=== PATIENT | female | born 1950 | race Caucasian/White ===

== ENCOUNTER 2019-06-10 13:19 | Outpatient (CLI) | payer MEDICARE, SELFPAY ==
--- NOTE | 2019-06-10 13:36 | XR_ITS ---
WS: [id number] SACRUM TECHNIQUE: 3 views of the sacrum and coccyx CLINICAL INFORMATION: SACROCOCCYGEAL DISORDERS COMPARISON: None. FINDINGS: Osteopenia. Pelvic phleboliths. Normal pubic rami. Vascular calcification. Disc space narrowing lower lumbar spine. Normal sacrum and coccyx. Normal sacrococcygeal junction. No acute fractures. XR/XR sacrum coccyx min 2V [id number] IMPRESSION: 1. Osteopenia with degenerative arthritis lower lumbar spine. 2. Normal visualized sacrum and coccyx. No visualized fractures.
== END 2019-06-10 13:20 | disposition home or self-care (01) ==
PROVIDERS: Family Provider Family Medicine; PCP Nurse Practitioner Family; Visit Provider Nurse Practitioner Family
DX: M53.3 Sacrococcygeal disorders, not elsewhere classified (principal); M85.88 Other specified disorders of bone density and structure, other site; M47.816 Spondylosis without myelopathy or radiculopathy, lumbar region
CPT/HCPCS: 72220

== ENCOUNTER 2020-04-07 14:27 | Outpatient (CLI) | payer MEDICARE, SELFPAY ==
--- NOTE | 2020-04-07 14:41 | XR_ITS ---
WS: [id number] DEXA (DUAL ENERGY X-RAY ABSORPTIOMETRY) Bone mineral density was performed using a Spotster machine. HISTORY: AGE RELATED OSTEOPOROSIS WITHOUT CURRENT PATHOLOGICAL FRACTURE COMPARISON: 03/12/2017 Lumbar spine BMD (L1-L4): 1.176 g/cm2 T score: 0.0 Z score: 2.1 Total hip BMD: Left: 0.672 g/cm2. T score: -2.7 Z score: -0.9 Right: 0.627 g/cm2. T score: -3.0 Z score: -1.3 10 year probability of a major osteoporotic fracture is 29%. Compared to the prior study from 03/12/2017. Lumbar spine bone mineral density has increased by 12.8%. Bilateral hips bone mineral density has increased by 1.9%. XR/XR DEXA axial skeleton* [id number] IMPRESSION: OSTEOPOROSIS based upon the WHO classification for females. Significant increas e in bone mineral density in the lumbar spine and hips since the prior study.
== END 2020-04-07 14:28 | disposition home or self-care (01) ==
LOC: RADWPI 14:38
PROVIDERS: PCP Nurse Practitioner Family; Visit Provider Nurse Practitioner Family
DX: M81.0 Age-related osteoporosis without current pathological fracture (principal)
CPT/HCPCS: 77080

== ENCOUNTER 2020-09-06 12:35 | Outpatient (CLI) | payer MEDICARE, SELFPAY ==
--- NOTE | 2020-09-06 12:49 | MM_ITS ---
WS: [id number] BILATERAL DIGITAL SCREENING MAMMOGRAPHY WITH CAD CLINICAL INFORMATION: SCREEN HISTORY: Screening mammogram. No current complaints. COMPARISON: TECHNIQUE: Bilateral CC and MLO views. FINDINGS: Scattered fibroglandular densities bilaterally. Lucent centered calcification right breast. A few pun ctate calcifications. No suspicious focal mass, asymmetry, calcifications, or architectural distortio n. No evidence of malignancy. MM/[place] [id number] IMPRESSION: BI-RADS: 2-Benign FOLLOW UP: 1 Year Follow-up Recommend return to annual screening mammography.
== END 2020-09-06 12:36 | disposition home or self-care (01) ==
LOC: RADSHAW 12:41
PROVIDERS: PCP Nurse Practitioner Family; Visit Provider Nurse Practitioner Family
DX: Z12.31 Encounter for screening mammogram for malignant neoplasm of breast (principal)
CPT/HCPCS: 77067

== ENCOUNTER 2021-11-16 13:48 | Emergency (ER) | payer MEDICARE, SELFPAY ==
[2021-11-16 13:50] VITALS: BP 162/87; PULSE 85; RESP 20; TEMP 36.4; O2SAT 97; BMI 21.5
--- NOTE | 2021-11-16 15:25 | ED_ITS ---
Documented by User: Annette Gant PA-C 11/16/21 15:30 HPI - Back Pain/Injury General: Chief Complaint: Back Pain/Injury Stated Complaint: Back pain Time Seen by Provider: 11/16/21 15:13 Source: patient Mode of arrival: wheelchair Limitations: no limitations History of Present Illness: 71-year-old female with a history of CVA presents to the ER today for worsening back pain. Patient comes with her brother who helps take care of her. They report patient has been out of her pain medication since September. They called to request a refill today as her pain is getting worse and worse and they were told she needed to be seen. Patient does not have another appointment until December 05 and she does not feel she can make it until then with the pain. She denies any new deficits. Denies any numbness or tingling. Denies any loss of bowel or bladder control. Patient reports her pain is worse but that is because she is out of medication. She is taking immediate release Tylenol at home with no improvement. Review of Systems General: Reports: 10 or more systems reviewed and unremarkable except in HPI and below PFSH ED PFSH: Medical History Anxiety and depression Chronic nausea COPD (chronic obstructive pulmonary disease) CVA, old, aphasia CVA 2013 Encounter for well woman exam Hyperlipidemia Hypertension Osteoporosis Physical Exam Const: COMMON NORMALS: no limitations and alert; apparent distress (pt appears uncomfortable) and negative for average body habitus (thin) Neck/C-Spine: COMMON NORMALS: full ROM Resp: COMMON NORMALS: normal respiratory effort and No retractions Cardio: COMMON NORMALS: regular rate and regular rhythm RATE: regular rate RHYTHM: regular rhythm Back/Pelvis: OTHER: Patient has diffuse tenderness of low back. There is no neurological deficits noted. This appears chronic. Extremity: COMMON NORMALS: normal to inspection Neuro: SENSORIUM/ORIENTATION: Yes alert Psych: OTHER: at baseline, hx of aphasia Skin: COMMON NORMALS: no rashes or lesions noted and no wounds GENERAL SKIN EXAM: no rashes or lesions noted Course ED course: 71-year-old female with a history of CVA with aphasia and chronic low back pain presents to the ER today for worsening back pain. Patient reports she has been out of her hydrocodone since September. At that time her pain was decently controlled on the hydrocodone. Patient reports she does not have an appointment with her PCP until December 05. She reports the pain is worsening and she cannot wait until then. She reports she has fallen a couple of times but denies any new deficits or that the pain is any worse than it was in September. Patient reports at that time it was just better controlled with the pain medications. Given there are no new neurological deficits, imaging is not warranted at this time. Vital Signs: Vital signs: Vital Signs Temperature 97.6 F 11/16/21 13:50 Pulse Rate 85 11/16/21 13:50 Respiratory Rate 20 H 11/16/21 13:50 Blood Pressure 162/87 11/16/21 13:50 Pulse Oximetry 97 11/16/21 13:50 Oxygen Delivery Me thod 11/16/21 13:50 MDM - Back Pain/Injury Medical Decision Making Patient has a history of chronic low back pain and likely this is just an exacerbation of that given she has been out of pain medications for almost 2 months. Imaging is not warranted at this time as she has no new deficits. Likely patient may need an MRI but with that can be done outpatient with her PCP. We will refill patient's pain meds for a few days however I did discuss with patient and brother that she must follow-up with her PCP this week as we cannot refill pain medications in the ER. They verbalized understanding and are in agreement with this plan. Critical Care Time Critical Care Time: Critical Care Time: No Discharge Plan Discharge Patient Disposition: Home Clinical Impression: Acute exacerbation of chronic low back pain Condition: Stable Prescriptions: New hydrocodone-acetaminophen 5-325 mg tablet 1 tab PO Q8H PRN (Reason: pain) 5 Days Qty: 15 0RF No Action One-A-Day Women's Complete 18 mg-400 mcg- 25 mcg tablet PO coenzyme Q10 100 mg capsule 100 mg PO DAILY albuterol sulfate 90 mcg/actuation aerosol powdr breath activated 2 inh inhalation Q6H PRN amlodipine 5 mg tablet 5 mg PO DAILY Qty: 90 1RF atorvastatin 40 mg tablet 40 mg PO .qhs 90 Days Qty: 90 1RF bisoprolol fumarate 5 mg tablet 5 mg PO DAILY Qty: 90 1RF indapamide 2.5 mg tablet 2.5 mg PO QAM Qty: 90 0RF mirtazapine 15 mg tablet 15 mg PO DAILY Qty: 90 1RF ondansetron HCl 4 mg tablet 4 mg PO Q8H PRN (Reason: nausea and vomiting) Qty: 30 1RF valsartan 320 mg tablet 320 mg PO DAILY Qty: 90 1RF hydrocodone-acetaminophen 5-325 mg tablet 1 tab PO BID PRN (Reason: chronic pain) 30 Days Qty: 60 0RF Rx Instructions: On or after her last 30 day interval. Discharge Orders: Discharge ED (Routine); Ordered 11/16/21 Ordered By: Annette Gant Referrals: Steve Velez MD [Primary Care Provider] - Discharge Diet: Usual diet Discharge Activity: Increase activity as tolerated Patient Instructions: Opioid Safety, Pain Management Activity Restrictions/Additional Instructions: Take hydrocodone as prescribed. Contact PCP today to schedule appointment next week. We cannot prescribe narcotics from the ER for long-term use. We will do a few days to get her through until she can see her doctor next week return to the ER with new or worsening symptoms. Coding Level of Care Code ED [employer] Intern for [employer] Exam Detailed Documented by User: Rodrigo Shepard DO 11/17/21 10:14 HPI - Back Pain/Injury General: Chief Complaint: Back Pain/Injury Stated Complaint: Back pain Time Seen by Provider: 11/16/21 15:13 PFSH ED PFSH: Medical History Anxiety and depression Chronic nausea COPD (chronic obstructive pulmonary disease) CVA, old, aphasia CVA 2013 Encounter for well woman exam Hyperlipidemia Hypertension Osteoporosis Course Vital Signs: Vital signs: Vital Signs Temperature 97.6 F 11/16/21 13:50 Pulse Rate 85 11/16/21 13:50 Respiratory Rate 20 H 11/16/21 13:50 Blood Pressure 162/87 11/16/21 13:50 Pulse Oximetry 97 11/16/21 13:50 Oxygen Delivery Me thod 11/16/21 13:50 MDM - Back Pain/Injury Medical Decision Making Patient has a history of chronic low back pain and likely this is just an ex acerbation of that given she has been out of pain medications for almost 2 months. Imaging is not warranted at this time as she has no new deficits. Likely patient may need an MRI but with that can be done outpatient with her PCP. We will refill patient's pain meds for a few days however I did discuss with patient and brother that she must follow-up with her PCP this week as we cannot refill pain medications in the ER. They verbalized understanding and are in agreement with this plan. Chart reviewed and patient discussed with midlevel. Agree with assessment and plan. Discharge Plan Discharge Patient Disposition: Home Clinical Impression: Acute exacerbation of chronic low back pain Condition: Stable Prescriptions: New hydrocodone-acetaminophen 5-325 mg tablet 1 tab PO Q8H PRN (Reason: pain) 5 Days Qty: 15 0RF No Action One-A-Day Women's Complete 18 mg-400 mcg- 25 mcg tablet PO coenzyme Q10 100 mg capsule 100 mg PO DAILY albuterol sulfate 90 mcg/actuation aerosol powdr breath activated 2 inh inhalation Q6H PRN amlodipine 5 mg tablet 5 mg PO DAILY Qty: 90 1RF atorvastatin 40 mg tablet 40 mg PO .qhs 90 Days Qty: 90 1RF bisoprolol fumarate 5 mg tablet 5 mg PO DAILY Qty: 90 1RF indapamide 2.5 mg tablet 2.5 mg PO QAM Qty: 90 0RF mirtazapine 15 mg tablet 15 mg PO DAILY Qty: 90 1RF ondansetron HCl 4 mg tablet 4 mg PO Q8H PRN (Reason: nausea and vomiting) Qty: 30 1RF valsartan 320 mg tablet 320 mg PO DAILY Qty: 90 1RF hydrocodone-acetaminophen 5-325 mg tablet 1 tab PO BID PRN (Reason: chronic pain) 30 Days Qty: 60 0RF Rx Instructions: On or after her last 30 day interval. Discharge Orders: Discharge ED (Routine); Ordered 11/16/21 Ordered By: Annette Gant Referrals: Steve Velez MD [Primary Care Provider] - Discharge Diet: Usual diet Discharge Activity: Increase activity as tolerated Patient Instructions: Opioid Safety, Pain Management Activity Restrictions/Additional Instructions: Take hydrocodone as prescribed. Contact PCP today to schedule appointment next week. We cannot prescribe narcotics from the ER for long-term use. We will do a few days to get her through until she can see her doctor next week return to the ER with new or worsening symptoms. Coding Level of Care Code ED [employer] Intern for [employer] Exam Detailed
== END 2021-11-16 15:22 | disposition home or self-care (01) ==
PROVIDERS: Emergency Provider Physician Assistant; PCP Family Medicine Adult Medicine
DX: G89.29 Other chronic pain (principal); M54.50 Low back pain, unspecified; J44.9 Chronic obstructive pulmonary disease, unspecified; Z86.73 Personal history of transient ischemic attack (TIA), and cerebral infarction without residual deficits; E78.5 Hyperlipidemia, unspecified; I10 Essential (primary) hypertension
CPT/HCPCS: 99283

== ENCOUNTER → 2022-05-31 11:00 | Outpatient (BNVA) | payer MEDICARE, SELFPAY | PROVIDERS: PCP Family Medicine Adult Medicine; Visit Provider Podiatrist Foot & Ankle Surgery | DX: Q82.8 Other specified congenital malformations of skin (principal); L60.3 Nail dystrophy; M20.41 Other hammer toe(s) (acquired), right foot; M20.42 Other hammer toe(s) (acquired), left foot; B35.1 Tinea unguium | CPT/HCPCS: 11055; 11721; 99203 ==

== ENCOUNTER 2022-08-17 16:01 | Inpatient (IN) | payer MEDICARE, SELFPAY ==
[2022-08-17] VITALS (35 sets, daily range): BP systolic 130–189; BP diastolic 65–116; PULSE 56–93; RESP 7–22; TEMP 35.8; O2SAT 91–99; BMI 22.6
--- NOTE | 2022-08-17 16:05 | W.ED.BACK ---
Documented by User: Rodrigo Shepard DO 08/19/22 13:32 HPI - Back Pain/Injury General: Chief Complaint: Back Pain/Injury Stated Complaint: BACK PAIN Time Seen by Provider: 08/17/22 16:04 Source: patient Mode of arrival: EMS History of Present Illness: 71-year-old female complaining mainly of an exacerbation of chronic low back pain. She also is having trouble breathing apparently. She has a history of expressive aphasia, which makes history difficult. Family feels pain has been uncontrollable. In the exam room is difficult to get a history from her she is continually bending over at the waist while sitting with her legs crossed initially complains of back pain and states she cannot breathe and cannot clear her throat. Her vital signs are stable. MD elicited complaint: back pain Pertinent past history: prior back pain Review of Systems General: Reports: ROS unobtainable due to medical condition and ROS unobtainable due to mental status PFSH ED PFSH: Medical History Anxiety and depression Chronic nausea COPD (chronic obstructive pulmonary disease) CVA, old, aphasia CVA 2014 Encounter for well woman exam [place] Hyperlipidemia Hypertension Osteoarthritis involving multiple joints on both sides of body Osteoporosis Plantar wart Smoker unmotivated to quit Social History Smoking and tobacco status: current every day smoker cigarettes Smoking risk assessment/counseling performed?: No Alcohol intake: current Alcohol intake frequency: holidays/special occasions only Alcohol type: wine Desire information about alcohol rehabilitation?: No Counseling given: No Substance/Drug Use: current Substance/Drug use frequency: Special occassions/opportunity only Desire information about substance/drug rehabilitation?: No Counseling given: No Adopted: No Current occupational status: disabled Physical Exam HENMT: COMMON NORMALS: normocephalic, atraumatic and hearing grossly normal bilaterally HEAD & SCALP: normocephalic and atraumatic Resp: COMMON NORMALS: normal respiratory effort, No retractions, No use of accessory muscles and clear to auscultation bilaterally AUSCULTATION: clear to auscultation bilaterally Cardio: COMMON NORMALS: regular rate, regular rhythm and No murmurs present (Cardio) RATE: regular rate RHYTHM: regular rhythm GI: COMMON NORMALS: Soft to palpation and No hepatosplenomegaly present AUSCULTATION: Yes normoactive bowel sounds PALPATION: Yes Soft to palpation, No Tenderness to palpation present (GI), No Guarding due to palpation present (GI) and Yes No hepatosplenomegaly present Extremity: COMMON NORMALS: normal to inspection, capillary refill normal, no clubbing, cyanosis or edema, no calf tenderness and no pedal edema Skin: COMMON NORMALS: no rashes or lesions noted GENERAL SKIN EXAM: no rashes or lesions noted Course Vital Signs: Vital signs: Vital Signs Temperature 97.7 F 08/19/22 07:30 Pulse Rate 84 08/19/22 13:00 Respiratory Rate 16 08/19/22 13:00 Blood Pressure 189/126 08/19/22 13:00 Pulse Oximetry 98 08/19/22 13:00 Oxygen Delivery Me thod Nasal Cannula 08/19/22 13:00 Oxygen Flow Rate 1.5 08/19/22 13:00 MDM - Back Pain/Injury Medical Decision Making Care signed out to Dr. Porter at change of shift. See final notes for diagnosis and disposition. 71-year-old female checked out to me by the previous physician at shift change. This lady has chronic aphasia, and so she is a difficult historian. She presents with severe back pain, which is an exacerbation of chronic back pain, and a feeling of not being able to breathe. Current vitals blood pressure 152/80, pulse is 60, respirations are 16. Saturations 95% on 2 L nasal cannula. Head CT was performed, because of apparent mental status change given her inability to talk. CT shows no acute abnormality. CT of the neck shows no mass or adenopathy but does showed mild diffuse groundglass opacities in the lungs. Chest x-ray however is negative for considerable infiltrate. Abdomen pelvis CT is completed as well. It shows pneumonitis again. It also shows severe stenosis at the L3-4, L4-5, and L5-S1 levels. Likely the cause of her pain. She received 2 mg of Ativan IV, which have relaxed her significantly. The patient has a history of COPD as well. Blood gases completed showing a pH of 737, PCO2 of 50, and PO2 of 99 on 24% oxygen. She is treated with Rocephin and Zithromax for pneumonitis. This is after blood cultures and lactate were drawn. She is given IV dexamethasone, both for the stenosis, and for COPD. She will go to the ICU, given her tedious respiratory status. We will continue IV steroids, breathing treatments, treatment for pneumonitis. Hospitalist asked that we consult spine surgery due to stenosis and pain. I spoke with orthospine, and he will see the patient in the morning. She does not appear to have any red flag symptoms or weakness at this point. Labs 08/18/22 04:17 08/18/22 04:17 Radiology Impressions Abdomen/Pelvis CT 08/17/22 16:21 IMPRESSION: 1. No acute abnormality. 2. At L3-L4, L4-L5 and L5-S1, there is severe stenosis of the spinal canal and foramina due to congenitally small canal, disc bulges and marked facet and ligamentum flavum hypertrophy. No acute fracture. 3. There is ground-glass opacity in the lung bases compatible with atelectasis, mild edema or pneumonitis. Chest X-Ray 08/17/22 16:22 IMPRESSION: No acute findings. Neck CT 08/17/22 16:30 IMPRESSION: 1. No mass or adenopathy. 2. Mild diffuse ground-glass opacity in the lungs concerning for edema or pneumonitis. Head CT 08/17/22 16:35 IMPRESSION: 1. No acute intracranial abnormality. 2. Old lacunar infarcts noted in the right cerebellar hemisphere, right thalamus, viviana/midbrain, and left basal ganglia. 3. Moderate diffuse cerebral atrophy and sequela of chronic small vessel ischemic disease. Laboratory Results WBC 7.6 10^3/uL (4.0-10.0) 08/17/22 17: RBC 4.25 10^6/uL (4.1-5.3) 08/17/22 17: Hgb 12.7 g/dL (11.5-15.3) 08/17/22 17: Hct 40.1 % (37.0-47.0) 08/17/22 17: MCV 94.4 fl (81-99) 08/17/22 17: MCH 29.9 pg (28.0-34.0) 08/17/22 17: MCHC 31.7 g/dL (30.0-36.0) 08/17/22 17: RDW 13.2 % (12.1-15.1) 08/17/22 17: Plt Count 286 10^3/cmm (130-400) 08/17/22 17:01 MPV 9.9 fL (7.4-10.4) 08/17/22 17:01 Neut % (Auto) 46.0 % 08/17/22 17:01 Lymph % (Auto) 39.1 % 08/17/22 17:01 [place] % (Auto) 9.0 % 08/17/22 17:01 Eos % (Auto) 4.3 % 08/17/22 17:01 Baso % (Auto) 1.3 % 08/17/22 17:01 Neut # (Auto) 3.49 10^3/uL (1.8-7.7) 08/17/22 17:01 Lymph # (Auto) 3.0 10^3/uL (0.8-4.8) 08/17/22 17:01 [place] # (Auto) 0.7 10^3/uL (0.2-0.9) 08/17/22 17:01 Eos # (Auto) 0.3 10^3/uL (0.0-0.8) 08/17/22 17:01 Baso # (Auto) 0.1 10^3/uL (0.0-0.1) 08/17/22 17:01 Nucleated RBC % (auto) 0 % 08/17/22 17:01 Nucleated RBCs # 0.0 /100WBC 08/17/22 17:01 D-Dimer 1.11 ug/mIFEU (0-0.59) H 08/17/22 17:01 Specimen Type Arterial 08/17/22 19:04 Sample Site Brachial, left 08/17/22 19:04 ABG pH 7.37 (7.35-7.45) 08/17/22 19:04 ABG pCO2 50.0 mmHg (35-45) H 08/17/22 19:04 ABG pO2 99.0 mmHg (80.0-100.0) 08/17/22 19:04 ABG HCO3 28.6 mmol/L (22-26) H 08/17/22 19:04 ABG Base Excess 2.5 mmol/L (-2.0-2.0) H 08/17/22 19:04 Robbie Test N/a 08/17/22 19:04 Hematocrit 38.2 % (37-47) 08/17/22 19:04 O2 Delivery Device Nc 08/17/22 19:04 O2 Liters/Min 1.0 % 08/17/22 19:04 FiO2 24.0 % 08/17/22 19:04 [place] Measurer ID Ed 08/17/22 19:04 Sodium 141 mmol/L (136-145) 08/17/22 17:01 Potassium 3.6 mmol/L (3.5-5.1) 08/17/22 17:01 Chloride 104 mmol/L (98-107) 08/17/22 17:01 Carbon Dioxide 27 mmol/L (22-29) 08/17/22 17:01 Anion Gap 13.6 (5-19) 08/17/22 17:01 BUN 20 mg/dL (8-23) 08/17/22 17:01 Creatinine 1.2 mg/dL (0.5-0.9) H 08/17/22 17:01 GFR Calculation Not Reportable 08/17/22 17:01 Glucose 88 mg/dL (65-115) 08/17/22 17:01 Calculated Osmolality 294 mOsm/kg (285-295) 08/17/22 17:01 Lactic Acid 0.7 mmol/L (0.5-2.2) 08/17/22 19:08 Calcium 8.5 mg/dL (8.5-10.5) 08/17/22 17:01 Total Bilirubin 0.2 mg/dL (0.15-1.2) 08/17/22 17:01 AST 18 U/L (0-32) 08/17/22 17:01 ALT 13 U/L (0-33) 08/17/22 17:01 Alkaline Phosphatase 112 U/L (35-105) H 08/17/22 17:01 Creatine Kinase 99 U/L (26-192) 08/17/22 17:01 Troponin T Baseline 21 ng/L (0-10) H 08/17/22 17:01 Troponin T 120 Minute 21.76 ng/L (0-10) H 08/17/22 19:08 Delta Troponin T 0.76 ABS# (0-10) 08/17/22 19:08 NT-Pro-B Natriuret Pep 207 pg/mL (0-125) H 08/17/22 19:08 Total Protein 6.3 g/dL (6.6-8.7) L 08/17/22 17:01 Albumin 3.9 g/dL (3.5-5.2) 08/17/22 17:01 Globulin 2.4 g/dL (1.3-4.6) 08/17/22 17:01 Lipase 39 U/L (13-60) 08/17/22 17:01 Procalcitonin 0.04 ng/mL (0-0.5) 08/17/22 19:08 TSH 24.89 uIU/mL (0.27-4.20) H 08/17/22 19:08 Urine Color Straw (Yellow) 08/17/22 16:52 Urine Appearance Clear (CLEAR) 08/17/22 16:52 Urine pH 5 (5-7) 08/17/22 16:52 Ur Specific [place] 1.025 (1.005-1.030) 08/17/22 16:52 Urine Protein Neg (Negative) 08/17/22 16:52 Urine Glucose (UA) Norm (Normal) 08/17/22 16:52 Urine Ketones Negative (Negative) 08/17/22 16:52 Urine Blood Trace (Negative) H 08/17/22 16:52 Urine Nitrate Negative (Negative) 08/17/22 16:52 Urine Bilirubin Neg (Negative) 08/17/22 16:52 Urine Urobilinogen Norm mg/dL (Negative) 08/17/22 16:52 Ur Leukocyte Esterase Negative (Negative) 08/17/22 16:52 Urine RBC None /hpf (0-2) 08/17/22 16:52 Urine WBC Rare /hpf (0-5) 08/17/22 16:52 Ur Squamous Epith Cells 0-4 /hpf (0-5) H 08/17/22 16:52 Amorphous Sediment Not Reportable 08/17/22 16:52 Urine Bacteria Trace /hpf (NONE) 08/17/22 16:52 Nasal Influ A H1 2008 PCR Not detected (NOT DETECT) 08/17/22 19:09 Adenovirus (PCR) Not detected (NOT DETECT) 08/17/22 19:09 C. pneumoniae DNA (PCR) Not detected (NOT DETECT) 08/17/22 19:09 Coronavirus 229E (PCR) Not detected (NOT DETECT) 08/17/22 19:09 Human Metapneumovir PCR Not detected (NOT DETECT) 08/17/22 19:09 Influenza A (H1) PCR Not detected (NOT DETECT) 08/17/22 19:09 Influenza A (H3) PCR Not detected (NOT DETECT) 08/17/22 19:09 Influenza Type A (PCR) Not detected (NOT DETECT) 08/17/22 19:09 Influenza Type B (PCR) Not detected (NOT DETECT) 08/17/22 19:09 M. pneumoniae (PCR) Not detected (NOT DETECT) 08/17/22 19:09 Parainfluenza 1 (PCR) Not detected (NOT DETECT) 08/17/22 19:09 Parainfluenza 2 (PCR) Not detected (NOT DETECT) 08/17/22 19:09 Parainfluenza 3 (PCR) Not detected (NOT DETECT) 08/17/22 19:09 Parainfluenza 4 (PCR) Not detected (NOT DETECT) 08/17/22 19:09 RSV Type A (PCR) Not detected (NOT DETECT) 08/17/22 19:09 RSV Type B (PCR) Not detected (NOT DETECT) 08/17/22 19:09 Entero/Rhino (PCR) Not detected (NOT DETECT) 08/17/22 19:09 SARS-CoV-2 (PCR) Not detected (NOT DETECT) 08/17/22 19:09 Discharge Plan Discharge Patient Disposition: Admitted As Inpatient Admit Provider: Nory Pino Clinical Impression: Lumbar stenosis, Pneumonitis, Respiratory failure with hypoxia Condition: Stable Coding Level of Care Code ED Public Address System Mechanic for Chg Fwd Documented by User: Alistair Porter DO 08/17/22 21:17 HPI - Back Pain/Injury General: Chief Complaint: Back Pain/Injury Stated Complaint: BACK PAIN Time Seen by Provider: 08/17/22 16:04 History of Present Illness: 71-year-old female complaining mainly of an exacerbation of chronic low back pain. She also is having trouble breathing apparently. She has a history of expressive aphasia, which makes history difficult PFSH ED PFSH: Medical History Anxiety and depression Chronic nausea COPD (chronic obstructive pulmonary disease) CVA, old, aphasia CVA 2013 Encounter for well woman exam [place] Hyperlipidemia Hypertension Osteoarthritis involving multiple joints on both sides of body Osteoporosis Plantar wart Smoker unmotivated to quit Social History Smoking and tobacco status: current every day smoker cigarettes Smoking risk assessment/counseling performed?: No Alcohol intake: current Alcohol intake frequency: holidays/special occasions only Alcohol type: wine Desire information about alcohol rehabilitation?: No Counseling given: No Substance/Drug Use: current Substance/Drug use frequency: Special occassions/opportunity only Desire information about substance/drug rehabilitation?: No Counseling given: No Adopted: No Current occupational status: disabled Course Vital Signs: Vital signs: Vital Signs Temperature 97.7 F 08/19/22 07:30 Pulse Rate 84 08/19/22 13:00 Respiratory Rate 16 08/19/22 13:00 Blood Pressure 189/126 08/19/22 13:00 Pulse Oximetry 98 08/19/22 13:00 Oxygen Delivery Me thod Nasal Cannula 08/19/22 13:00 Oxygen Flow Rate 1.5 08/19/22 13:00 MDM - Back Pain/Injury Medical Decision Making 71-year-old female checked out to me by the previous physician at shift change. This lady has chronic aphasia, and so she is a difficult historian. She presents with severe back pain, which is an exacerbation of chronic back pain, and a feeling of not being able to breathe. Current vitals blood pressure 152/80, pulse is 60, respirations are 16. Saturations 95% on 2 L nasal cannula. Head CT was performed, because of apparent mental status change given her inability to talk. CT shows no acute abnormality. CT of the neck shows no mass or adenopathy but does showed mild diffuse groundglass opacities in the lungs. Chest x-ray however is negative for considerable infiltrate. Abdomen pelvis CT is completed as well. It shows pneumonitis again. It also shows severe stenosis at the L3-4, L4-5, and L5-S1 levels. Likely the cause of her pain. She received 2 mg of Ativan IV, which have relaxed her significantly. The patient has a history of COPD as well. Blood gases completed showing a pH of 737, PCO2 of 50, and PO2 of 99 on 24% oxygen. She is treated with Rocephin and Zithromax for pneumonitis. This is after blood cultures and lactate were drawn. She is given IV dexamethasone, both for the stenosis, and for COPD. She will go to the ICU, given her tedious respiratory status. We will continue IV steroids, breathing treatments, treatment for pneumonitis. Hospitalist asked that we consult spine surgery due to stenosis and pain. I spoke with orthospine, and he will see the patient in the morning. She does not appear to have any red flag symptoms or weakness at this point. Labs 08/18/22 04:17 08/18/22 04:17 Radiology Impressions Abdomen/Pelvis CT 08/17/22 16:21 IMPRESSION: 1. No acute abnormality. 2. At L3-L4, L4-L5 and L5-S1, there is severe stenosis of the spinal canal and foramina due to congenitally small canal, disc bulges and marked facet and ligamentum flavum hypertrophy. No acute fracture. 3. There is ground-glass opacity in the lung bases compatible with atelectasis, mild edema or pneumonitis. Chest X-Ray 08/17/22 16:22 IMPRESSION: No acute findings. Neck CT 08/17/22 16:30 IMPRESSION: 1. No mass or adenopathy. 2. Mild diffuse ground-glass opacity in the lungs concerning for edema or pneumonitis. Head CT 08/17/22 16:35 IMPRESSION: 1. No acute intracranial abnormality. 2. Old lacunar infarcts noted in the right cerebellar hemisphere, right thalamus, viviana/midbrain, and left basal ganglia. 3. Moderate diffuse cerebral atrophy and sequela of chronic small vessel ischemic disease. Laboratory Results WBC 7.6 10^3/uL (4.0-10.0) 08/17/22 17:01 RBC 4.25 10^6/uL (4.1-5.3) 08/17/22 17:01 Hgb 12.7 g/dL (11.5-15.3) 08/17/22 17:01 Hct 40.1 % (37.0-47.0) 08/17/22 17: MCV 94.4 fl (81-99) 08/17/22 17:01 MCH 29.9 pg (28.0-34.0) 08/17/22 17: MCHC 31.7 g/dL (30.0-36.0) 08/17/22 17:01 RDW 13.2 % (12.1-15.1) 08/17/22 17:01 Plt Count 286 10^3/cmm (130-400) 08/17/22 17:01 MPV 9.9 fL (7.4-10.4) 08/17/22 17:01 Neut % (Auto) 46.0 % 08/17/22 17:01 Lymph % (Auto) 39.1 % 08/17/22 17:01 [place] % (Auto) 9.0 % 08/17/22 17:01 Eos % (Auto) 4.3 % 08/17/22 17:01 Baso % (Auto) 1.3 % 08/17/22 17:01 Neut # (Auto) 3.49 10^3/uL (1.8-7.7) 08/17/22 17:01 Lymph # (Auto) 3.0 10^3/uL (0.8-4.8) 08/17/22 17:01 [place] # (Auto) 0.7 10^3/uL (0.2-0.9) 08/17/22 17:01 Eos # (Auto) 0.3 10^3/uL (0.0-0.8) 08/17/22 17:01 Baso # (Auto) 0.1 10^3/uL (0.0-0.1) 08/17/22 17:01 Nucleated RBC % (auto) 0 % 08/17/22 17:01 Nucleated RBCs # 0.0 /100WBC 08/17/22 17:01 D-Dimer 1.11 ug/mIFEU (0-0.59) H 08/17/22 17:01 Specimen Type Arterial 08/17/22 19:04 Sample Site Brachial, left 08/17/22 19:04 ABG pH 7.37 (7.35-7.45) 08/17/22 19:04 ABG pCO2 50.0 mmHg (35-45) H 08/17/22 19:04 ABG pO2 99.0 mmHg (80.0-100.0) 08/17/22 19:04 ABG HCO3 28.6 mmol/L (22-26) H 08/17/22 19:04 ABG Base Excess 2.5 mmol/L (-2.0-2.0) H 08/17/22 19:04 Robbie Test N/a 08/17/22 19:04 Hematocrit 38.2 % (37-47) 08/17/22 19:04 O2 Delivery Device Nc 08/17/22 19:04 O2 Liters/Min 1.0 % 08/17/22 19:04 FiO2 24.0 % 08/17/22 19:04 [place] Measurer ID Ed 08/17/22 19:04 Sodium 141 mmol/L (136-145) 08/17/22 17:01 Potassium 3.6 mmol/L (3.5-5.1) 08/17/22 17:01 Chloride 104 mmol/L (98-107) 08/17/22 17:01 Carbon Dioxide 27 mmol/L (22-29) 08/17/22 17:01 Anion Gap 13.6 (5-19) 08/17/22 17:01 BUN 20 mg/dL (8-23) 08/17/22 17:01 Creatinine 1.2 mg/dL (0.5-0.9) H 08/17/22 17:01 GFR Calculation Not Reportable 08/17/22 17:01 Glucose 88 mg/dL (65-115) 08/17/22 17:01 Calculated Osmolality 294 mOsm/kg (285-295) 08/17/22 17:01 Lactic Acid 0.7 mmol/L (0.5-2.2) 08/17/22 19:08 Calcium 8.5 mg/dL (8.5-10.5) 08/17/22 17:01 Total Bilirubin 0.2 mg/dL (0.15-1.2) 08/17/22 17:01 AST 18 U/L (0-32) 08/17/22 17:01 ALT 13 U/L (0-33) 08/17/22 17:01 Alkaline Phosphatase 112 U/L (35-105) H 08/17/22 17:01 Creatine Kinase 99 U/L (26-192) 08/17/22 17:01 Troponin T Baseline 21 ng/L (0-10) H 08/17/22 17:01 Troponin T 120 Minute 21.76 ng/L (0-10) H 08/17/22 19:08 Delta Troponin T 0.76 ABS# (0-10) 08/17/22 19:08 NT-Pro-B Natriuret Pep 207 pg/mL (0-125) H 08/17/22 19:08 Total Protein 6.3 g/dL (6.6-8.7) L 08/17/22 17:01 Albumin 3.9 g/dL (3.5-5.2) 08/17/22 17:01 Globulin 2.4 g/dL (1.3-4.6) 08/17/22 17:01 Lipase 39 U/L (13-60) 08/17/22 17:01 Procalcitonin 0.04 ng/mL (0-0.5) 08/17/22 19:08 TSH 24.89 uIU/mL (0.27-4.20) H 08/17/22 19:08 Urine Color Straw (Yellow) 08/17/22 16:52 Urine Appearance Clear (CLEAR) 08/17/22 16:52 Urine pH 5 (5-7) 08/17/22 16:52 Ur Specific [place] 1.025 (1.005-1.030) 08/17/22 16:52 Urine Protein Neg (Negative) 08/17/22 16:52 Urine Glucose (UA) Norm (Normal) 08/17/22 16:52 Urine Ketones Negative (Negative) 08/17/22 16:52 Urine Blood Trace (Negative) H 08/17/22 16:52 Urine Nitrate Negative (Negative) 08/17/22 16:52 Urine Bilirubin Neg (Negative) 08/17/22 16:52 Urine Urobilinogen Norm mg/dL (Negative) 08/17/22 16:52 Ur Leukocyte Esterase Negative (Negative) 08/17/22 16:52 Urine RBC None /hpf (0-2) 08/17/22 16:52 Urine WBC Rare /hpf (0-5) 08/17/22 16:52 Ur Squamous Epith Cells 0-4 /hpf (0-5) H 08/17/22 16:52 Amorphous Sediment Not Reportable 08/17/22 16:52 Urine Bacteria Trace /hpf (NONE) 08/17/22 16:52 Nasal Influ A H1 2009 PCR Not detected (NOT DETECT) 08/17/22 19:09 Adenovirus (PCR) Not detected (NOT DETECT) 08/17/22 19:09 C. pneumoniae DNA (PCR) Not detected (NOT DETECT) 08/17/22 19:09 Coronavirus 229E (PCR) Not detected (NOT DETECT) 08/17/22 19:09 Human Metapneumovir PCR Not detected (NOT DETECT) 08/17/22 19:09 Influenza A (H1) PCR Not detected (NOT DETECT) 08/17/22 19:09 Influenza A (H3) PCR Not detected (NOT DETECT) 08/17/22 19:09 Influenza Type A (PCR) Not detected (NOT DETECT) 08/17/22 19:09 Influenza Type B (PCR) Not detected (NOT DETECT) 08/17/22 19:09 M. pneumoniae (PCR) Not detected (NOT DETECT) 08/17/22 19:09 Parainfluenza 1 (PCR) Not detected (NOT DETECT) 08/17/22 19:09 Parainfluenza 2 (PCR) Not detected (NOT DETECT) 08/17/22 19:09 Parainfluenza 3 (PCR) Not detected (NOT DETECT) 08/17/22 19:09 Parainfluenza 4 (PCR) Not detected (NOT DETECT) 08/17/22 19:09 RSV Type A (PCR) Not detected (NOT DETECT) 08/17/22 19:09 RSV Type B (PCR) Not detected (NOT DETECT) 08/17/22 19:09 Entero/Rhino (PCR) Not detected (NOT DETECT) 08/17/22 19:09 SARS-CoV-2 (PCR) Not detected (NOT DETECT) 08/17/22 19:09 Discharge Plan Discharge Patient Disposition: Admitted As Inpatient Admit Provider: Nory Pino Clinical Impression: Lumbar stenosis, Pneumonitis, Respiratory failure with hypoxia Condition: Stable Coding Level of Care Code ED Public Address System Mechanic for Troy Sahni
--- NOTE | 2022-08-17 16:21 | CTR_ITS ---
PROCEDURE INFORMATION: Exam: CT Abdomen And Pelvis Without Contrast Exam date and time: 08/17/2022 5:58 PM Age: 71 years old Clinical indication: Abdominal pain; Generalized; Patient HX: Diffuse abd and back pain. Recent multiple falls per family. TECHNIQUE: Imaging protocol: Computed tomography of the abdomen and pelvis without contrast. Radiation optimization: All CT scans at this facility use at least one of these dose optimization techniques: automated exposure control; mA and/or kV adjustment per patient size (includes targeted exams where dose is matched to clinical indication); or iterative reconstruction. REPORTING DATA: Count of CT and Cardiac NM exams in prior 12 months: This patient has received 0 known CTs and 0 known cardiac nuclear medicine studies in the 12 months prior to the current study. COMPARISON: MR abdomen wo/w con* [id number] 01/22/2017 10:12 AM RADIATION DOSE METRICS: Total DLP (mGy-cm): 661.76 FINDINGS: Lungs: There is ground-glass opacity in the lung bases compatible with atelectasis, mild edema or pneumonitis. Liver: Unremarkable.No mass. Gallbladder and bile ducts: There is no wall thickening or pericholecystic fluid to suggest cholecystitis. Pancreas: Normal. No ductal dilation. Spleen: The spleen is normal. Adrenal glands: The adrenal glands are normal. Kidneys and ureters: There is no evidence of hydronephrosis. There is no evidence of renal calcifications. Stomach and bowel: There is no evidence of intestinal perforation or obstruction. Appendix: The appendix is not definitively identified. However, there is no CT evidence of a right lower quadrant inflammatory process. Intraperitoneal space: Unremarkable. No free air. No significant fluid collection. Vasculature: There are numerous benign phleboliths in the pelvis. The aorta demonstrates moderate atherosclerotic calcification. No aortic aneurysm. Lymph nodes: Unremarkable.No enlarged lymph nodes. Urinary bladder: The bladder is decompressed. Reproductive: Unremarkable as visualized. Bones/joints: There are moderate to severe degenerative changes in the spine. No acute bony abnormality. At L3-L4, L4-L5 and L5-S1, there is severe stenosis of the spinal canal and foramina due to congenitally small canal, disc bulges and marked facet and ligamentum flavum hypertrophy. Soft tissues: Unremarkable. CT/CT abdomen pelvis wo con [id number] IMPRESSION: 1. No acute abnormality. 2. At L3-L4, L4-L5 and L5-S1, there is severe stenosis of the spinal canal and foramina due to congenitally small canal, disc bulges and marked facet and ligamentum flavum hypertrophy. No acute fracture. 3. There is ground-glass opacity in the lung bases compatible with atelectasis, mild edema or pneumonitis.
--- NOTE | 2022-08-17 16:22 | XRR_ITS ---
PROCEDURE INFORMATION: Exam: XR Chest Exam date and time: 08/17/2022 5:15 PM Age: 71 years old Clinical indication: Cough and dyspnea; Additional info: Dyspnea/cough TECHNIQUE: Imaging protocol: Radiologic exam of the chest. Views: 1 view. COMPARISON: CT chest con [id number] 11/02/2018 3:24 PM FINDINGS: Lungs: No consolidation. Pleural spaces: No pleural effusion. No pneumothorax. Heart/Mediastinum: No cardiomegaly. Bones/joints: Visualized osseous structures are intact. XR/XR chest 1V portable [id number] IMPRESSION: No acute findings.
--- NOTE | 2022-08-17 16:23 | ECG_ITS ---
[facility] Test Date: 2022-08-17 Pat Name: Aneta Moody Department: Room: Gender: Female Starch Mangle Tender: : 1950 Requested By: Rodrigo Dill Order Number: [id number] Reading MD: Minor Lozano M.D. Measurements Intervals [place] Rate: 64 P: -10 WV: 154 QRS: 10 QRSD: 83 T: 64 QT: 417 QTc: 433 Interpretive Statements SINUS RHYTHM NONSPECIFIC T-WAVE ABNORMALITY Compared to ECG 08/06/2016 10:30:51 No significant changes Electronically Signed On 08-18-2022 9:42:46 CDT by Minor Lozano M.D. [email or web address]
--- NOTE | 2022-08-17 16:30 | CTR_ITS ---
PROCEDURE INFORMATION: Exam: CT Neck With Contrast Exam date and time: 08/17/2022 6:02 PM Age: 71 years old Clinical indication: Dysphagia / difficulty swallowing; Patient HX: Dysphagia. Recent multiple falls per family. TECHNIQUE: Imaging protocol: Computed tomography of the neck with contrast. Radiation optimization: All CT scans at this facility use at least one of these dose optimization techniques: automated exposure control; mA and/or kV adjustment per patient size (includes targeted exams where dose is matched to clinical indication); or iterative reconstruction. Contrast material: OMNI 350; Contrast volume: 100 ml; Contrast route: INTRAVENOUS (IV); REPORTING DATA: Count of CT and Cardiac NM exams in prior 12 months: This patient has received 0 known CTs and 0 known cardiac nuclear medicine studies in the 12 months prior to the current study. COMPARISON: CT head wo con* [id number] 08/17/2022 5:54 PM RADIATION DOSE METRICS: Total DLP (mGy-cm): 198.51 FINDINGS: Pharynx: Unremarkable. No significant tonsillar enlargement. Larynx: Unremarkable. Epiglottis is normal. Prevertebral and retropharyngeal spaces: Unremarkable. Salivary glands: Normal. Glands are normal in size. Thyroid: Normal. No enlarged or calcified nodules. Lymph nodes: Unremarkable. No lymphadenopathy. Trachea: Visualized trachea is unremarkable. Lungs: Mild diffuse ground-glass opacity concerning for mild edema or pneumonitis. Bones/joints: Severe diffuse degenerative changes in the spine. Multiple levels of the moderate to severe foraminal narrowing due to facet and uncovertebral hypertrophy. No acute fracture. Soft tissues: Unremarkable. No significant soft tissue swelling. CT/CT neck w con* [id number] IMPRESSION: 1. No mass or adenopathy. 2. Mild diffuse ground-glass opacity in the lungs concerning for edema or pneumonitis.
--- NOTE | 2022-08-17 16:35 | CTR_ITS ---
PROCEDURE INFORMATION: Exam: CT Head Without Contrast Exam date and time: 08/17/2022 5:54 PM Age: 71 years old Clinical indication: Altered mental status/memory loss; Patient HX: AMS. Severe lethargy. Recent multiple falls per family. TECHNIQUE: Imaging protocol: Computed tomography of the head without contrast. Radiation optimization: All CT scans at this facility use at least one of these dose optimization techniques: automated exposure control; mA and/or kV adjustment per patient size (includes targeted exams where dose is matched to clinical indication); or iterative reconstruction. REPORTING DATA: Count of CT and Cardiac NM exams in prior 12 months: This patient has received 0 known CTs and 0 known cardiac nuclear medicine studies in the 12 months prior to the current study. COMPARISON: No relevant prior studies available. RADIATION DOSE METRICS: Total DLP (mGy-cm): 1063.24 FINDINGS: Brain: No hemorrhage. No edema. Moderate diffuse cerebral atrophy and sequela of chronic small vessel ischemic disease. Old lacunar infarcts noted in the right cerebellar hemisphere, right thalamus, viviana/midbrain, and left basal ganglia. No mass effect. Cerebral ventricles: No ventriculomegaly. Paranasal sinuses: Visualized sinuses are unremarkable. No fluid levels. Mastoid air cells: Visualized mastoid air cells are well aerated. Bones/joints: Unremarkable. No acute fracture. Soft tissues: Unremarkable. CT/CT head wo con* [id number] IMPRESSION: 1. No acute intracranial abnormality. 2. Old lacunar infarcts noted in the right cerebellar hemisphere, right thalamus, viviana/midbrain, and left basal ganglia. 3. Moderate diffuse cerebral atrophy and sequela of chronic small vessel ischemic disease.
[2022-08-17] MEDS: LORazepam 2 mg/mL INJ 1 mL IVP (16:40)
[2022-08-17 17:07] LABS: Basophils # 0.1 10^3/uL (0.0-0.1); Basophils % 1.3 %; Eosinophils # 0.3 10^3/uL (0.0-0.8); Eosinophils % 4.3 %; Hematocrit 40.1 % (37.0-47.0); Hemoglobin 12.7 g/dL (11.5-15.3); Lymphocytes % 39.1 %; Mean Corpuscular HGB Conc 31.7 g/dL (30.0-36.0); Mean Corpuscular Hemoglobin 29.9 pg (28.0-34.0); Mean Corpuscular Volume 94.4 fl (81-99); Mean Platelet Volume 9.9 fL (7.4-10.4); Monocytes # 0.7 10^3/uL (0.2-0.9); Neutrophils # 3.49 10^3/uL (1.8-7.7); Nucleated Red Blood Cells % 0 %; Platelet Count 286 10^3/cmm (130-400); Red Blood Count 4.25 10^6/uL (4.1-5.3); Red Cell Distribution Width 13.2 % (12.1-15.1); White Blood Count 7.6 10^3/uL (4.0-10.0)
[2022-08-17 17:20] LABS: Add Urine Culture? No; Add Urine Microscopic? YES; Bacteria Urine TRACE /hpf; Bilirubin Urine Neg (Negative); Blood Urine Trace (Negative); Glucose Urine UA Norm (Normal); Ketones Urine Negative (Negative); Leukocyte Esterase Urine Negative (Negative); Nitrate Urine Negative (Negative); Protein Urine Neg (Negative); Specific Gravity, Urine 1.025 (1.005-1.030); Squamous Epithelial Cell Urine 0-4 /hpf (0-5); Urine Appearance Clear (CLEAR); Urine Color Straw (Yellow); Urobilinogen Urine Norm (Negative); WBC Urine RARE /hpf (0-5); pH Urine 5 (5-7)
[2022-08-17 17:39] LABS: Troponin(5th) Baseline 21 ng/L (0-10)
[2022-08-17 17:43] LABS: Alanine Aminotransferase 13 U/L (0-33); Albumin Level 3.9 g/dL (3.5-5.2); Alkaline Phosphatase 112 U/L (35-105); Anion Gap 13.6 (5-19); Aspartate Amino Transferase 18 U/L (0-32); Blood Urea Nitrogen 20 mg/dL (8-23); Calcium 8.5 mg/dL (8.5-10.5); Carbon Dioxide 27 mmol/L (22-29); Chloride 104 mmol/L (98-107); Creatine Phosphokinase 99 U/L (26-192); Globulin 2.4 g/dL (1.3-4.6); Glucose 88 mg/dL (65-115); Lipase 39 U/L (13-60); Osmolality Calculated 294 mOsm/kg (285-295); Potassium 3.6 mmol/L (3.5-5.1); Sodium 141 mmol/L (136-145); Total Bilirubin 0.2 mg/dL (0.15-1.2); Total Protein 6.3 g/dL (6.6-8.7)
[2022-08-17] MEDS: iohexol 350 mg/mL 500 mL Btl (per mL) IV (18:01)
--- NOTE | 2022-08-17 18:22 | ECG_ITS ---
[facility] Test Date: 2022-08-17 Pat Name: Aneta Moody Department: Room: Gender: Female Head Of Physics: : 1950 Requested By: Rodrigo Dill Order Number: [id number] Mohsen MD: Minor Lozano M.D. Measurements Intervals [place] Rate: 59 P: 44 [place]: 190 QRS: -8 QRSD: 90 T: 86 QT: 445 QTc: 443 Interpretive Statements SINUS BRADYCARDIA MINIMAL VOLTAGE CRITERIA FOR LVH, CONSIDER NORMAL VARIANT [MEETS CRITERIA IN ONE OF: R(aVL), S(V1), R(V5), R(V5/V6)+S(V1)] POSSIBLE ANTERIOR MYOCARDIAL INFARCTION , OF INDETERMINATE AGE [30 ms Q WAVE IN V3/V4, OR R < 0.2 mV IN V4] Compared to ECG 08/17/2022 16:23:14 Myocardial infarct finding now present Sinus rhythm no longer present T-wave abnormality no longer present Electronically Signed On 08-18-2022 9:47:40 CDT by Minor Lozano M.D. [id number]
[2022-08-17 19:14] LABS: ABG PH Result 7.37 (7.35-7.45); Arterial Blood Gas Hematocrit 38.2 % (37-47); Base Excess ABG 2.5 mmol/L (-2.0-2.0); Blood Gas Sample Type Arterial; HCO3 ABG 28.6 mmol/L (22-26)
[2022-08-17 19:15] LABS: Blood Gas Operator Identificat ED; Blood Gas Sample Site Brachial, left; Oxygen Device NC
[2022-08-17] MEDS: cefTRIAXone 1,000 MG in sodium chloride 0.9% (plus) 50 ML 100 MG IV (19:25)
[2022-08-17 19:36] LABS: Troponin 5 2HR 21.76 ng/L (0-10)
[2022-08-17 19:40] LABS: Lactic Sepsis W/Reflex 0.7 mmol/L (0.5-2.2)
[2022-08-17 19:43] LABS: Troponin 5 2HR Delta 0.76 ABS# (0-10)
[2022-08-17] MEDS: dexamethasone 4 mg/mL INJ 8 MG IVP (20:45)
[2022-08-17 21:02] LABS: Adenovirus Not Detected (NOT DETECT); Chlamydia Pneumoniae Not Detected (NOT DETECT); Coronavirus 229E,HKU1,NL63,OC4 Not Detected (NOT DETECT); Human Metapneumovirus Not Detected (NOT DETECT); Human Rhinovirus/Enterovirus Not Detected (NOT DETECT); Influenza A Not Detected (NOT DETECT); Influenza A H1 Not Detected (NOT DETECT); Influenza A H1-2009 Not Detected (NOT DETECT); Influenza A H3 Not Detected (NOT DETECT); Influenza B Not Detected (NOT DETECT); Mycoplasma Pneumoniae Not Detected (NOT DETECT); Parainfluenza Virus Type 1 Not Detected (NOT DETECT); Parainfluenza Virus Type 2 Not Detected (NOT DETECT); Parainfluenza Virus Type 3 Not Detected (NOT DETECT); Parainfluenza Virus Type 4 Not Detected (NOT DETECT); Respiratory Syncytial Virus A Not Detected (NOT DETECT); Respiratory Syncytial Virus B Not Detected (NOT DETECT); SARS-COV-2 Not Detected (NOT DETECT)
[2022-08-17 21:26] LABS: D Dimer 1.11 ug/mIFEU (0-0.59)
[2022-08-17] MEDS: ondansetron 2 mg/ML SDV 2 mL 4 MG IVP (21:28)
[2022-08-17] MEDS: morphine 4 mg/mL SDV 1 mL IVP (21:29)
[2022-08-17] MEDS: azithromycin 500 MG in sodium chloride 0.9% 250 ML 250 MG IV (21:36)
--- NOTE | 2022-08-17 22:02 | P.HP_ITS ---
Providers/Chief Complaint Admitting Physician: Nory Pino MD Primary Care Provider: Steve Velez MD Chief Complaint: BACK PAIN History of Present Illness Aneta Moody is a 71 year old female With past medical history of anxiety depression, COPD, CVA, aphasia, hyperlipidemia, hypertension, chronic back pain, osteoarthritis who was brought to the hospital today for unknown symptoms. As per ER doctor he was not able to obtain history from the patient or her son. It was unclear as to why she was brought in. However when she was seen she was rocking back and forth with unclear reason why. There was suspicion that she is having severe back pain. She was also quite short of breath. She appeared anxious. She was given 2 mg of Ativan and subsequently 4 mg of morphine. Since then patient has been asleep. She does open her eyes when given verbal cue and follows 1 or 2 commands such as telling her name. Not able to squeeze fingers. Apparently she was in respiratory distress in the ER. When seen she was on 1 L saturating 97% by hospitalist. Her vitals have been completely stable. She was admitted to ICU as a precautionary measure for impending respiratory failure due to being overly sedated. However when patient seen in ICU she seems to be doing a lot better. She is able to protect her airway at this time. Unable to obtain any history from her. Discussed with bedside RN as well who states that she got report the patient was brought into the hospital because daughter cares for her at home and patient lives alone however now family is interested in alf. There is no family present at bedside at this time. On chart review CBC is normal, ABG 7.3 //20 8.6. BMP normal with a creatinine of 1.2, unsure what her baseline is. Lactic acid 0.7, baseline troponin 21, delta troponin 2 hours 0.76, 6-hour delta troponin -1.94 BNP 207, UA normal. Respiratory viral panel completely negative. CT head shows no acute intracranial abnormality. Old lacunar infarcts noted in right cerebellar hemisphere right thalamus viviana midbrain and left basal ganglia. Moderate diffuse cerebral atrophy and sequela of chronic small vessel ischemic disease. Neck CT obtained which showed mild diffuse groundglass opacity in lungs concerning for edema or pneumonitis chest x-ray showed no acute findings abdomen pelvis CT shows no acute abnormality. At L3-L4 L4-L5 L5-S1 there is severe stenosis of spinal canal and foramina due to congenitally small canal disc bulges and marked facet and ligamentum flavum hypertrophy no acute fracture. There is possibility of pneumonitis. She was started on ceftriaxone and azithromycin in the ER to cover for that possibly. Medications/Allergies Home Medications Medication Instructions Recorded Confirmed Last Taken Type coenzyme Q10 100 mg capsule 100 mg PO DAILY 09/05/21 08/14/22 Unknown History pjrttqey-wanahvl-thjs-iron 18 tab PO 09/05/21 08/14/22 Unknown History mg-FA 400 mcg-vit K 25 mcg tablet (One-A-Day Women's Complete(with vit K)) fluticasone propionate 50 1 spray intranasal BID 03/05/22 08/14/22 Unknown History mcg/actuation nasal spray,suspension bisoprolol fumarate 5 mg tablet 5 mg PO DAILY #90 tabs 05/03/22 08/14/22 Unknown Rx albuterol sulfate 90 mcg/actuation 2 inh inhalation Q6H PRN shortness 07/12/22 08/14/22 Unknown Rx breath activated powder inhaler of breath #1 ea amlodipine 5 mg tablet 5 mg PO DAILY blood pressure #90 07/12/22 08/14/22 Unknown Rx tabs atorvastatin 40 mg tablet 40 mg PO .qhs high chlesterol 90 07/12/22 08/14/22 Unknown Rx days #90 tabs celecoxib 100 mg capsule 100 mg PO BID chronic pain #60 caps 07/12/22 08/14/22 Unknown Rx gabapentin 100 mg capsule 100 mg PO .qhs pain and sleep #30 07/12/22 08/14/22 Unknown Rx caps mirtazapine 15 mg tablet 15 mg PO .qhs Mental Health #90 07/12/22 08/14/22 Unknown Rx tabs valsartan 320 mg tablet 320 mg PO DAILY High blood 07/12/22 08/14/22 Unknown Rx pressure #90 tabs hydrocodone 5 mg-acetaminophen 325 1 tab PO BID PRN chronic pain 30 08/14/22 08/14/22 Unknown Rx mg tablet days #60 tabs Allergies Allergy/AdvReac Type Severity Reaction Status Date / Time No Known Allergies Allergy Verified 08/17/22 16:07 PFSH Acute PFSH: Medical History Anxiety and depression Chronic nausea COPD (chronic obstructive pulmonary disease) CVA, old, aphasia CVA 2013 Encounter for well woman exam [place] Hyperlipidemia Hypertension Osteoarthritis involving multiple joints on both sides of body Osteoporosis Plantar wart Smoker unmotivated to quit Social History Smoking and tobacco status: current every day smoker cigarettes Smoking risk assessment/counseling performed?: No Alcohol intake: current Alcohol intake frequency: holidays/special occasions only Alcohol type: wine Desire information about alcohol rehabilitation?: No Counseling given: No Substance/Drug Use: current Substance/Drug use frequency: Special occa ssions/opportunity only Desire information about substance/drug rehabilitation?: No Counseling given: No Adopted: No Current occupational status: disabled Vitals/I&O/Wt Last Vital Signs Pulse 60 08/17/22 20:00 Resp 15 08/17/22 21:29 BP 152/80 08/17/22 20:00 Pulse Ox 97 08/17/22 21:29 O2 Del Method Nasal Cannula 08/17/22 20:00 08/17/22 08/17/22 08/17/22 06:59 14:59 22:59 Intake Total 50 / 50 Balance 50 / 50 Weight last 48 hrs Weight 54.431 kg Physical Exam Narrative: General: Sedated, seen laying in bed. Wakes up to tell her name otherwise does not follow any other commands at this time. Able to protect her airway. Breathing 1 L nasal cannula with no acute respiratory distress saturating 97% HEENT: Normocephalic, atraumatic, EOMI, Cardio: Regular rate rhythm, normal S1-S2 Respiratory: Clear to auscultation bilaterally GI: Abdomen soft, nontender, nondistended, bowel sounds + Extremities: No edema noted Back: No skin breakdown noted. No rashes noted on body. (back exam performed by RN) Data 08/17/22 17:01 08/17/22 17:01 Micro: Microbiology 08/17/22 19:11 Blood Culture - Preliminary Blood SPECIMEN COLLECTED 08/17/22 19:15 Blood Culture - Preliminary Blood SPECIMEN COLLECTED A&P Assessment and plan (1) Lumbar stenosis: (2) Pneumonitis: (3) Respiratory failure with hypoxia: (4) CVA, old, aphasia: (5) Chronic nausea: (6) Anxiety and depression: (7) Hyperlipidemia: (8) Hypertension: (9) COPD (chronic obstructive pulmonary disease): Plan #Possible pneumonitis #Severe back pain, lumbar stenosis #Acute respiratory distress on admission however now stable and on 1 L nasal cannula #History of COPD #History of anxiety and depression #History of stroke #Expressive aphasia chronic/nonverbal #Hypertension ? Work-up has been negative so far. We will need to contact family and obtain collateral information regarding patient's complaints. ? She does have severe lumbar stenosis for which Dr. Manning has been consulted for his opinion. Unsure given her current situation and history if family would want to proceed with lumbar surgery. ? Continue to monitor in ICU. ? Once patient awake more alert we will transfer to medical surgical floor ? I will hold off on ordering home medications at this time. They are unconfirmed and we do not have previous chart on her in our system. We will need to confirm her home medications from the pharmacy in a.m. ? Check cortisol level, TSH, vitamin B12 level -There is possibility of pneumonitis on her imaging. Unsure if there was an aspiration event or nausea vomiting recently. ? Cover her with ceftriaxone azithromycin ? Check sputum culture Gram stain, blood cultures, urine culture ? Patient is also noted to be hypothermic at 96.5. We will begin active rewarming protocol. ? We will continue to monitor patient's respirations. We may need to intubate if respiratory status worsens. ? DuoNeb every 6 hours scheduled for now ? Dexamethasone 6 IV daily -Placed on normal saline 75 cc/h. - Check ABG Full code SCDs, heparin SQ twice daily for DVT prophylaxis Attestations Medical Necessity Statement*: Greater than 2 midnight stay for management of pneumonitis, severe back pain, possible respiratory failure Coding Level of Care Code G0425 (30 min) TH Encounter Time (min): 45 Patient seen via Telehealth in the acute care setting (hospital or ED location) by agreement and consent of patient or patient member services representative. Telehealth technology used during the visit includes video and audio. This patient encounter is appropriate and reasonable under the circumstances given the patient?s particular presentation at this time. The patient has been advised of the potential risks and limitations of this mode of treatment (including but not limited to the absence of in-person examination at this time) and has agreed to be treated by an off-site physician for this visit. If deemed clinically necessary from this telehealth visit, or if condition or consent for telehealth visit changes, an in-person visit will be arranged. For this encounter, total time for the origination of telehealth care on this date is as shown. Diagnoses Lumbar stenosis M48.061 Pneumonitis J18.9 Respiratory failure with hypoxia J96.91 CVA, old, aphasia I69.320 Chronic nausea R11.0 Anxiety and depression F41.9; F32.A Hyperlipidemia E78.5 Hypertension I10 COPD (chronic obstructive pulmonary disease) J44.9
--- NOTE | 2022-08-17 22:22 | ECG_ITS ---
[facility] Test Date: 2022-08-17 Pat Name: Aneta Moody Department: Room: Gender: Female Host And Hostess: : 1950 Requested By: Rodirgo Dill Order Number: [id number] Mohsen MD: Minor Lozano M.D. Measurements Intervals [place] Rate: 56 P: 52 WV: 194 QRS: 2 QRSD: 82 T: 67 QT: 432 QTc: 420 Interpretive Statements SINUS BRADYCARDIA NONSPECIFIC T-WAVE ABNORMALITY Compared to ECG 08/17/2022 18:46:44 T-wave abnormality now present Myocardial infarct finding no longer present Electronically Signed On 08-18-2022 9:47:47 CDT by Minor Lozano M.D. [id number]
[2022-08-17 22:49] LABS: NT Pro B Type Natriuretic Pept 207 pg/mL (0-125); Procalcitonin 0.04 ng/mL (0-0.5); Thyroid Stimulating Hormone 24.89 uIU/mL (0.27-4.20)
[2022-08-17] MEDS: heparin 5,000 unit/mL INJ 1 mL 5000 UNIT SUBCUT (23:18)
[2022-08-17] MEDS: piperacillin-tazobactam 3.375 GM in sodium chloride 0.9% (plus) 50 ML IV (23:19)
[2022-08-17] MEDS: sodium chloride 0.9% 1,000 ML 75 ML IV (23:20)
[2022-08-18] VITALS (140 sets, daily range): BP systolic 118–196; BP diastolic 62–154; PULSE 56–108; RESP 5–31; TEMP 36.4–36.9; O2SAT 87–100
[2022-08-18 00:20] LABS: Troponin 5 6HR 19.06 ng/L (0-10)
[2022-08-18 00:25] LABS: Troponin 5 6HR Delta -1.94 ng/L (0-12)
[2022-08-18 01:27] LABS: Free T4 Free Thyroxine 0.82 ng/dL (0.82-1.77)
[2022-08-18] MEDS: morphine 4 mg/mL SDV 1 mL 2 MG IVP ×2 (02:22→06:14)
[2022-08-18 03:59] LABS: ABG PCO2 51.3 mmHg (35-45); ABG PH Result 7.32 (7.35-7.45); Alveolar-Arterial Oxygen Gradi 7.2 mmHg (5-10); Arterial Blood Gas Hematocrit 41.9 % (37-47); Base Excess ABG -0.8 mmol/L (-2.0-2.0); Blood Gas Sample Site Brachial, left; Blood Gas Sample Type Arterial; Carboxyhemoglobin 1.4 %THgb (0.4-20.1); HCO3 ABG 26.1 mmol/L (22-26); HGB O2 Sat 94.4 % (95-100); Ionized Calcium Level - ABG 1.2 mmol/L (1.1-1.4); Methemoglobin 0.5 % (0.4-1.5); Oxygen Device NC; Oxygen Saturation ABG 96.2; PO2 ABG 80.2 mmHg (80.0-100.0); Potassium Level - ABG 3.8 mmol/L (3.5-5.0); Total Hemoglobin 13.7 g/dL (12-16)
[2022-08-18 04:49] LABS: Basophils # 0.1 10^3/uL (0.0-0.1); Basophils % 0.8 %; Eosinophils % 0.1 %; Hematocrit 41.5 % (37.0-47.0); Hemoglobin 13.4 g/dL (11.5-15.3); Lymphocytes # 1.1 10^3/uL (0.8-4.8); Mean Corpuscular HGB Conc 32.3 g/dL (30.0-36.0); Mean Corpuscular Hemoglobin 30.5 pg (28.0-34.0); Mean Corpuscular Volume 94.3 fl (81-99); Mean Platelet Volume 10.1 fL (7.4-10.4); Monocytes # 0.1 10^3/uL (0.2-0.9); Monocytes % 0.9 %; Neutrophils # 7.18 10^3/uL (1.8-7.7); Neutrophils % 84.7 %; Nucleated Red Blood Cells % 0 %; Platelet Count 301 10^3/cmm (130-400); Red Cell Distribution Width 13.1 % (12.1-15.1); White Blood Count 8.5 10^3/uL (4.0-10.0)
[2022-08-18 05:07] LABS: Anion Gap 12.1 (5-19); Blood Urea Nitrogen 17 mg/dL (8-23); Calcium 8.5 mg/dL (8.5-10.5); Carbon Dioxide 25 mmol/L (22-29); Chloride 105 mmol/L (98-107); Glucose 167 mg/dL (65-115); Magnesium 1.9 mg/dL (1.7-2.3); Osmolality Calculated 291 mOsm/kg (285-295); Phosphorus 3.7 mg/dL (2.5-4.5); Potassium 4.1 mmol/L (3.5-5.1); Sodium 138 mmol/L (136-145)
[2022-08-18 05:13] LABS: Free T4 Free Thyroxine 0.81 ng/dL (0.82-1.77)
[2022-08-18 06:02] LABS: Vitamin B12 238 pg/mL (232-1245)
--- NOTE | 2022-08-18 08:08 | PC.PHAR ---
PT UNABLE TO VERIFY MEDS DUE TO AMS- MEDICATIONS VERIFIED USING LAST FILLED AND PICKED, EXTERNAL MED LIST
[2022-08-18] MEDS: sennosides-docusate Tablet 2 TAB PO (08:12)
[2022-08-18] MEDS: acetaminophen 325 mg Tablet 650 MG PO ×2 (08:12→14:57)
[2022-08-18] MEDS: aspirin 81 mg EC Tablet PO (08:12)
[2022-08-18] MEDS: lidocaine 5% Patch 1 PATCH TOPICAL (08:13)
--- NOTE | 2022-08-18 09:13 | P.CONIM_ITS ---
Providers/Reason For Consult Consulting Physician/Specialty*: Orthopedic spine Reason for Consult*: Back pain Attending Physician: Gurjit Alejandre MD Primary Care Provider: Steve Velez MD History of Present Illness History of Present Illness Aneta Moody is a 71 year old female who appears in moderate acute distress. Patient is aphasic with history of 2 CVAs. There is a family member present but very poor historian. Patient is nonverbal. The family member states that the patient was ambulatory with a walker up until 3 days ago following a fall. She was brought to the emergency room where orthopedics was consulted for her back pain following a CT scan that showed severe stenosis. The family member is unable to provide any detail history regarding the patient's condition. All of the information has been gleaned from the medical record. Patient does follow c ommands slightly she is able to wiggle her toes slowly can flex and extend the knees slowly. Patient is moaning from what appears to be in pain. She does roll around in bed and does appear to make eye contact. Review of Systems Const: Denies: fever(s) or change in appetite Eyes: Denies: change in vision or eye discharge ENMT: Denies: ear discharge or nasal congestion Resp: Denies: dyspnea or wheezing GI: Denies: abdominal pain, nausea, vomiting, dysphagia or diarrhea Musc: Reports: back pain; Denies: neck pain, extremity pain, extremity swelling or joint pain Neuro: Reports: weakness in extremities, lack of coordination, difficulty walking and frequent falls; Denies: headache(s) or behavioral changes Medications/Allergies Home Medications Medication Instructions Recorded Confirmed Last Taken Type coenzyme Q10 100 mg capsule 100 mg PO DAILY 09/05/21 08/18/22 Unknown History zcptpoxw-khaqdoy-eple-iron 18 1 tab PO DAILY 09/05/21 08/18/22 Unknown History mg-FA 400 mcg-vit K 25 mcg tablet (One-A-Day Women's Complete(with vit K)) fluticasone propionate 50 1 spray intranasal BID 03/05/22 08/18/22 Unknown History mcg/actuation nasal spray,suspension bisoprolol fumarate 5 mg tablet 5 mg PO DAILY #90 tabs 05/03/22 08/18/22 Unknown Rx albuterol sulfate 90 mcg/actuation 2 inh inhalation Q6H PRN shortness 07/12/22 08/18/22 Unknown Rx breath activated powder inhaler of breath #1 ea amlodipine 5 mg tablet 5 mg PO DAILY blood pressure #90 07/12/22 08/18/22 Unknown Rx tabs atorvastatin 40 mg tablet 40 mg PO .qhs high chlesterol 90 07/12/22 08/18/22 Unknown Rx days #90 tabs celecoxib 100 mg capsule 100 mg PO BID chronic pain #60 caps 07/12/22 08/18/22 Unknown Rx gabapentin 100 mg capsule 100 mg PO .qhs pain and sleep #30 07/12/22 08/18/22 Unknown Rx caps mirtazapine 15 mg tablet 15 mg PO .qhs Mental Health #90 07/12/22 08/18/22 Unknown Rx tabs valsartan 320 mg tablet 320 mg PO DAILY High blood 07/12/22 08/18/22 Unknown Rx pressure #90 tabs hydrocodone 5 mg-acetaminophen 325 1 tab PO BID PRN chronic pain 30 08/14/22 08/18/22 Unknown Rx mg tablet days #60 tabs Allergies Allergy/AdvReac Type Severity Reaction Status Date / Time No Known Allergies Allergy Verified 08/17/22 16:07 Current Medications Generic Name Dose Route Start Last Admin Trade Name Freq PRN Reason Stop Dose Admin Acetaminophen 650 mg 08/17/22 22:16 08/18/22 08:12 Acetaminophen 325 Mg Tablet PO 650 mg Q6H PRN Administration Mild/Mod Pain Or Temp >/= 101 Aspirin 81 mg 08/18/22 09:00 08/18/22 08:12 Aspirin 81 Mg Ec Tablet PO 81 mg DAILY LEDY Administration Heparin Sodium (Porcine) 5,000 unit 08/17/22 22:15 08/17/22 23:18 Heparin 5,000 Unit/Ml Inj 1 Ml SUBCUT 5,000 unit Q12H LEDY Administration Azithromycin 500 mg/ Sodium 250 mls @ 250 mls/hr 08/17/22 20:45 08/17/22 22:36 Chloride IV Infused Q24H LEDY Infusion Protocol Sodium Chloride 1,000 mls @ 75 mls/hr 08/17/22 22:30 08/17/22 23:20 Sodium Chloride 0.9% IV 75 mls/hr .[id number] LEDY Administration Levothyroxine Sodium 50 mcg 08/18/22 06:00 08/18/22 05:30 Levothyroxine 50 Mcg Tablet PO Not Given QAM [facility] Lidocaine 1 patch 08/18/22 09:00 08/18/22 08:13 Lidocaine 5% Patch TOPICAL 1 patch [id number] LEDY Administration Senna/Docusate Sodium 2 tab 08/18/22 09:00 08/18/22 08:12 Sennosides-Docusate Tablet PO 2 tab BID LEDY Administration PFSH Acute PFSH: Medical History Anxiety and depression Chronic nausea COPD (chronic obstructive pulmonary disease) CVA, old, aphasia CVA 2013 Encounter for well woman exam [place] Hyperlipidemia Hypertension Osteoarthritis involving multiple joints on both sides of body Osteoporosis Plantar wart Smoker unmotivated to quit Social History Smoking and tobacco status: current every day smoker cigarettes Smoking risk assessment/counseling performed?: No Alcohol intake: current Alcohol intake frequency: holidays/special occasions only Alcohol type: wine Desire information about alcohol rehabilitation?: No Counseling given: No Substance/Drug Use: current Substance/Drug use frequency: Special occassions/opportunity only Desire information about substance/drug rehabilitation?: No Counseling given: No Adopted: No Current occupational status: disabled Vitals/I&O/Wt Last Vital Signs Temp 97.6 F 08/18/22 06:00 Pulse 108 H 08/18/22 08:00 Resp 22 H 08/18/22 08:00 BP 152/96 08/18/22 08:00 Pulse Ox 87 L 08/18/22 08:00 O2 Del Method Nasal Cannula 08/18/22 08:00 O2 Flow Rate 1.5 08/18/22 08:00 08/17/22 08/18/22 08/18/22 22:59 06:59 14:59 Intake Total 300 / 300 50 / 350 Balance 300 / 300 50 / 350 Weight last 48 hrs Weight 114 lb 10.246 oz Weight 120 lb Physical Exam Narrative: Patient is alert follows commands slightly. She is aphasic and does moan in pain. She appears to have palpatory and percussion pain in the lumbar spine. Nontender in the thoracic or cervical spine. She is able to move both legs with flexion extension of the knees she can dorsiflex plantarflex both ankles she slightly wiggles her toes. Her toes and feet are very poorly kept. Feet are warm to the touch dorsalis pedis and posterior tibial pulses are palpable calves are supple. She has negative logroll bilaterally. She does respond to sharp sensations in both legs. HENMT: COMMON NORMALS: normocephalic and atraumatic HEAD & SCALP: normocephalic and atraumatic Resp: COMMON NORMALS: normal respiratory effort Cardio: COMMON NORMALS: regular rate and regular rhythm RATE: regular rate RHYTHM: regular rhythm GI: COMMON NORMALS: Soft to palpation PALPATION: Yes Soft to palpation : COMMON NORMALS: Yes no CVA tenderness BLADDER/KIDNEY EXAM: Yes no CVA tenderness Back/Pelvis: COMMON NORMALS: no CVA tenderness Psych: OTHER: Aphasic Data 08/18/22 04:17 08/18/22 04:17 Micro: Microbiology 08/17/22 19:11 Blood Culture - Preliminary Blood SPECIMEN COLLECTED 08/17/22 19:15 Blood Culture - Preliminary Blood SPECIMEN COLLECTED CT Head: Radiologist's impression: CT/CT head wo con* [id number] IMPRESSION: 1. ? No acute intracranial abnormality. 2. ? Old lacunar infarcts noted in the right cerebellar hemisphere, right thalamus, viviana/midbrain, and left basal ganglia. 3. ? Moderate diffuse cerebral atrophy and sequela of chronic small vessel ischemic disease. CT Abd/Pel: Radiologist's impression: CT/CT abdomen pelvis wo con [id number] IMPRESSION: 1. ? No acute abnormality. 2. ? At L3-L4, L4-L5 and L5-S1, there is severe stenosis of the spinal canal and foramina due to congenitally small canal, disc bulges and marked facet and ligamentum flavum hypertrophy.? No acute fracture. 3. ? There is ground-glass opacity in the lung bases compatible with atelectasis, mild edema or pneumonitis. A&P Assessment and plan (1) Lumbar stenosis: Discussed with the family and the nurse will recommend an MRI scan of her lumbar spine without contrast. I will order CRP and a C-reactive protein. Discuss further treatment options after the MRI scan is complete. (2) Chronic back pain: (3) Falls: Coding Level of Care Code Acute Code for [facility] Diagnoses Lumbar stenosis M48.061 Chronic back pain M54.9; G89.29 Falls W19.XXXA
[2022-08-18] MEDS: HYDROmorphone 1 mg/mL INJ 1 mL 0.5 MG IVP ×4 (09:24→21:33)
[2022-08-18] MEDS: heparin 5,000 unit/mL INJ 1 mL 5000 UNIT SUBCUT ×2 (09:28→21:33)
[2022-08-18 09:45] LABS: Erythrocyte Sedimentation Rate 8 mm/hr (0-15)
[2022-08-18] MEDS: LORazepam 2 mg/mL INJ 1 mL 0.5 MG IVP ×3 (10:22→19:08)
[2022-08-18] MEDS: dexamethasone 10 mg/mL INJ IVP (11:18)
[2022-08-18] MEDS: sodium chloride 0.9% 1,000 ML 75 ML IV (11:19)
--- NOTE | 2022-08-18 12:53 | PC.SOCIAL ---
SDOH Patient is not alert to answer questions, she is noted to be in severe pain and writhing in bed. History obtained from family.
--- NOTE | 2022-08-18 13:33 | PC.SLP ---
HEMATOLOGY NURSE EDUCATOR holding off on assessment at this time due to pt pain, mental status.
--- NOTE | 2022-08-18 14:07 | P.PN_ITS ---
Subjective Subjective: - Patient was examined multiple times throughout the morning today -She was examined with her daughter at bedside -She tells me that her uncle is patient's power of claims attorney -She tells me that patient lives at home by herself -She has had 2 strokes, since her stroke she tends to ambulate with a walker -For the most part she can ambulate, she needs help with her day-to-day activities and family members check up on her every day but no one is with her 24 hours -She tells me that on August 13 she was found on the floor by family members and since then she has had a rapid decline -She is remained in bed remaining in intractable pain, complaining of severe low back pain -She is normally alert and awake now she is just in so much pain she tells me -Patient currently and is writhing in severe pain, complaining of severe low back pain, I cannot get much history from her, she does follow some commands such as squeezing my fingers, but she keeps offloading her back rolling to her side and severe pain -She was reexamined after she was given Dilaudid and Ativan, she is a bit more calm, currently with her son -Her son tells me that for the last 2 weeks she has had a gradual decline, -Her appetite has decreased, her mentation has declined, which was especially accelerated after her fall -He tells me that she cannot ambulate anymore due to severe low back pain -Her appetite has declined, she has not eaten much, -He does not move with the hydrocodone that Dr. Velez gave she has had much more rest, but continues to have significant breakthrough pain -Looking at prior documentation it seems like patient had a CVA, with difficulty speaking and aphasia since 2013 Vitals/I&O/Wt Last Vital Signs Temp 97.6 F 08/18/22 06:00 Pulse 93 08/18/22 13:00 Resp 20 H 08/18/22 13:39 BP 131/74 08/18/22 13:00 Pulse Ox 96 08/18/22 13:00 O2 Del Method Nasal Cannula 08/18/22 13:00 O2 Flow Rate 1.5 08/18/22 13:00 08/17/22 08/18/22 08/18/22 22:59 06:59 14:59 Intake Total 300 / 300 50 / 350 898.75 / 898.75 Balance 300 / 300 50 / 350 898.75 / 898.75 Weight last 48 hrs Weight 52 kg Weight 54.431 kg Physical Exam Urinary Catheter Management: Dent: Cath Placed During This Visit: yes Urinary Catheter Date of Insertion: 08/18/22 Urinary Catheter Time of Insertion: 13:31 Data 08/18/22 04:17 08/18/22 04:17 Micro: Microbiology 08/17/22 19:11 Blood Culture - Preliminary Blood SPECIMEN COLLECTED 08/17/22 19:15 Blood Culture - Preliminary Blood SPECIMEN COLLECTED A&P Assessment and plan (1) Lumbar stenosis: (2) Pneumonitis: (3) Respiratory failure with hypoxia: (4) CVA, old, aphasia: (5) Chronic nausea: (6) Anxiety and depression: (7) Hyperlipidemia: (8) Hypertension: (9) COPD (chronic obstructive pulmonary disease): (10) Intractable back pain: (11) Protein calorie malnutrition: (12) Physical deconditioning: (13) Hypothyroidism: (14) Aspiration pneumonitis: (15) Aspiration pneumonia: (16) Inability to walk: (17) Falls: Plan #Possible pneumonitis #Severe back pain, lumbar stenosis #Acute respiratory distress on admission however now stable and on 1 L nasal cannula, possibly medication associated with morphine, Ativan #History of COPD #History of anxiety and depression #History of stroke #Expressive aphasia chronic/nonverbal, as per documentation she has had CVA in 2013 and difficulty speaking and aphasia since then #Hypertension #Intractable back pain #Aspiration pneumonitis, aspiration pneumonia #Hypothyroidism ? CT of the head shows old lacunar infarcts noted in the right cerebellar hemisphere, right thalamus, viviana, midbrain, left basal ganglia, moderate diffuse cerebral atrophy -As patient has had recurrent falls, likely secondary to cerebellar infarcts, PT OT, aspirin, statin -Given her multiple lacunar infarcts, continue telemetry monitoring, cardiac echo will have to consider a event monitor at discharge as these certainly could be embolic phenomenon from A-fib -She does have hypothyroidism, elevated TSH this certainly could be playing a role due to her weakness, will start on levothyroxine 50 mcg once daily check TSH daily CT abdomen pelvis ? At L3-L4, L4-L5 and L5-S1, there is severe stenosis of the spinal canal and foramina due to congenitally small canal, disc bulges and marked facet and ligamentum flavum hypertrophy.? No acute fracture. -With significant fall August 13, now with intractable pain -Intractable pain Dilaudid 0.5 every 4 hours, Ativan as needed for anxiety -Monitor respiratory status closely as she is developed apnea and bradycardia with morphine, Narcan if needed, will give another 10 mg of Decadron today -As received Decadron continue 6 mg IV push every 24 hours -Lidocaine patch -Orthopedic service has been consulted -We will consider muscle relaxers -MRI of the back ordered -PT OT once pain is well controlled ? Continue to monitor closely ? Once patient awake more alert we will transfer to medical surgical floor -Cortisol levels are borderline low normal, monitor -Likely aspiration pneumonitis, with aspiration pneumonia, given groundglass opacities in both lungs, continue Rocephin ? Check sputum culture Gram stain, blood cultures, urine culture ? Patient is also noted to be hypothermic at 96.5. Currently on rewarming protocol, improving -Has protein calorie malnutrition, consult dietary -Physical deconditioning, PT OT once pain is well controlled ? We will continue to monitor patient's respirations. We may need to intubate if respiratory status worsens. ? DuoNeb every 6 hours scheduled for now ? Dexamethasone 6 IV daily -Placed on normal saline 75 cc/h. - Full code SCDs, heparin SQ twice daily for DVT prophylaxis Plan for today we will get pain under control, add steroids, increase to Dilaudid, add Ativan, IV fluids, levothyroxine, continue antibiotics, spoke to patient's daughter, spoke to patient's son, spoke to nursing staff Attestations Medical Necessity Statement*: Patient requires hospitalization, inpatient, greater than 2 midnights, due to intractable back pain, severe lumbar stenosis, decreased ambulation, falls, aspiration pneumonia, aspiration pneumonitis, hypothyroidism, inability to ambulate Diagnoses Lumbar stenosis M48.061 Pneumonitis J18.9 Respiratory failure with hypoxia J96.91 CVA, old, aphasia I69.320 Chronic nausea R11.0 Anxiety and depression F41.9; F32.A Hyperlipidemia E78.5 Hypertension I10 COPD (chronic obstructive pulmonary disease) J44.9 Intractable back pain M54.9 Protein calorie malnutrition E46 Physical deconditioning R53.81 Hypothyroidism E03.9 Aspiration pneumonitis J69.0 Aspiration pneumonia J69.0 Inability to walk R26.2 Falls [id number]
[2022-08-18] MEDS: cefTRIAXone 1,000 MG in sodium chloride 0.9% (plus) 50 ML 100 MG IV (17:34)
[2022-08-18] MEDS: azithromycin 500 MG in sodium chloride 0.9% 250 ML 250 MG IV (20:27)
--- NOTE | 2022-08-18 22:15 | USCV_ITS ---
Aneta Moody Age: 71 Gender: F : 1950 Exam Date: 08/18/2022 13:24 Ordering Phys: Nory Pino MD Technologist: SHERMAN Exam Location: [facility] [place] Indication: sob BP: / HR: 70 Rhythm: Sinus Technical Quality: Adequate MEASUREMENTS (Male / Female) Normal Values 2D ECHO LV Diastolic Diameter PLAX 4.5 cm 4.2 - 5.9 / 3.9 - 5.3 cm LV Systolic Diameter PLAX 3.3 cm IVS Diastolic Thickness 0.7 cm 0.6 - 1.0 / 0.6 - 0.9 cm IVS Systolic Thickness 1.1 cm LVPW Diastolic Thickness 0.7 cm 0.6 - 1.0 / 0.6 - 0.9 cm LVPW Systolic Thickness 1.2 cm LVOT Diameter 1.9 cm LV Ejection Fraction 2D Teich 50.8 % LV Ejection Fraction MOD 2C 59.3 % LV Ejection Fraction 2C AL 58.8 % LA Diameter 3.1 cm IVC Diameter 1.9 cm M-MODE Aortic Annulus Diameter 3.6 cm LA Ao Ratio MM 1.0 MV E Point Septal Separation 0.1 cm DOPPLER AV Peak Velocity 99.7 cm/s LVOT Peak Velocity 95.7 cm/s AV Area Cont Eq vti 2.8 cm squared AV Area Cont Eq pk 2.8 cm squared MV Area PHT 3.3 cm squared Mitral E to A Ratio 0.7 MV E' Velocity 47.5 cm/s Mitral E to MV E' Ratio 8.2 Mitral E to LV E' Lateral Ratio 7.0 Mitral E to LV E' Septal Ratio 10.1 TR Peak Velocity 236.0 cm/s TR Peak Gradient 22.3 mmHg TV Peak E Velocity 48.0 cm/s Right Atrial Pressure 6.0 mmHg Pulmonary Artery Systolic Pressu 28.3 mmHg PV Peak Velocity 76.0 cm/s FINDINGS Left Ventricle Normal left ventricular size, systolic function and wall thickness, with no regional wall motion abnormalities. Grade I/IV diastolic dysfunction (abnormal relaxation filling pattern), normal to mildly elevated filling pressures. Left ventricular ejection fraction is estimated at 65 %. Right Ventricle Normal right ventricular size and systolic function. Normal right ventricular systolic pressure. Right Atrium The right atrium is normal in size. Left Atrium Mildly increased left atrial size. Mitral Valve Structurally normal mitral valve. Trace mitral valve regurgitation. Aortic Valve Structurally normal trileaflet aortic valve. Mild aortic valve regurgitation. No aortic valve stenosis. Tricuspid Valve Structurally normal tricuspid valve. Trace to mild tricuspid valve regurgitation. Pulmonic Valve Pulmonic valve not well visualized. Pericardium Normal pericardium without effusion. Aorta Normal ascending aorta dimension. IVC The inferior vena cava appears normal. CONCLUSIONS Normal left ventricular size, systolic function and wall thickness, with no regional wall motion abnormalities. Grade I/IV diastolic dysfunction (abnormal relaxation filling pattern), normal to mildly elevated filling pressures. Left ventricular ejection fraction is estimated at 65 %. Mildly increased left atrial size. Structurally normal mitral valve. Trace mitral valve regurgitation. Structurally normal trileaflet aortic valve. Mild aortic valve regurgitation. No aortic valve stenosis. There has been no change since the previous study dated 02/01/2015 Dr. Minor Lozano MD (Electronically Signed) Final Date: 18 August 2022 15:40 S
[2022-08-19] VITALS (160 sets, daily range): BP systolic 129–198; BP diastolic 56–126; PULSE 45–128; RESP 5–24; TEMP 36.4–36.5; O2SAT 92–100
[2022-08-19] MEDS: LORazepam 2 mg/mL INJ 1 mL 0.5 MG IVP ×5 (01:13→21:20)
[2022-08-19] MEDS: sodium chloride 0.9% 1,000 ML 75 ML IV ×2 (01:20→16:00)
[2022-08-19] MEDS: HYDROmorphone 1 mg/mL INJ 1 mL 0.5 MG IVP ×5 (03:25→21:43)
[2022-08-19 06:34] LABS: T3 Free 1.4 PG/ML (2.0-4.4); Thyroid Stimulating Hormone 3.01 uIU/mL (0.27-4.20)
[2022-08-19] MEDS: sennosides-docusate Tablet 2 TAB PO (07:33)
[2022-08-19] MEDS: acetaminophen 325 mg Tablet 650 MG PO (07:33)
[2022-08-19] MEDS: aspirin 81 mg EC Tablet PO (07:34)
[2022-08-19] MEDS: lidocaine 5% Patch 1 PATCH TOPICAL (07:34)
[2022-08-19] MEDS: dexamethasone 10 mg/mL INJ 6 MG IVP (09:04)
--- NOTE | 2022-08-19 09:30 | MR_ITS ---
WS: [id number] MRI LUMBAR SPINE NONCONTRAST TECHNIQUE: Sagittal T1, T2 and STIR imaging. Axial T1 and T2 imaging. CLINICAL INFORMATION: hx of fall with back pain COMPARISON: MRI 2018 FINDINGS: Small syrinx in the lower thoracic cord is similar appearance to 2018. Mild lumbar curve. No acute co mpression. Disc bulging worse at L3-L4 L4-L5 and L5-S1. L1-L2: Mild disc bulging with slight effacement of ventral thecal sac. Mild central canal stenosis. M ild bilateral foraminal narrowing RIGHT greater than LEFT. Mild facet arthropathy. L2-L3: Mild disc bulging with slight effacement of ventral thecal sac. Mild facet arthropathy. Mild R IGHT greater than LEFT foraminal narrowing. Mild central canal stenosis. L3-L4: Slight anterolisthesis. Disc bulging combination with facet arthropathy and ligamentum flavum hypertrophy results in moderate to severe central canal stenosis. Impingement traversing L4 nerve sharonda ts bilaterally. This is progressed compared to previous. Mild bilateral foraminal narrowing. L4-L5: Mild disc bulging in combination with facet arthropathy and ligamentum flavum hypertrophy resu lts in moderate central canal stenosis. Impingement traversing L5 nerve roots bilaterally. Moderate b ilateral foraminal narrowing. L5-S1: Mild disc bulging with impingement traversing S1 nerve roots bilaterally RIGHT greater than LE FT. Moderate facet arthropathy. Moderate RIGHT greater than LEFT foraminal narrowing. Visualized pelvic bony structures: Normal. Paravertebral soft tissues: Normal. Chronic lacunar infarcts in the viviana partially visualized. Moderate spondylitic changes cervical spin e on ice guard tester imaging. Moderate thoracic kyphosis. MR/MR lumbar spine wo con* [id number] IMPRESSION: Some images degraded by motion. 1. Moderate to severe central canal stenosis L3-L4 progressed compared to prev ious. 2. Moderate central canal stenosis L4-L5 and L5-S1 also progressed compared to previous. 3. Mild to moderate foraminal narrowing bilateral L3-L4 L4-L5 and L5-S1. 4. Stable syrinx partially visualized in the lower thoracic cord. 5. No visualized acute compression fractures.
--- NOTE | 2022-08-19 09:55 | PC.SLP ---
GARDE MANAGER holding off on assessment at this time due to pt pain, mental status.
[2022-08-19] MEDS: heparin 5,000 unit/mL INJ 1 mL 5000 UNIT SUBCUT ×2 (10:42→22:11)
--- NOTE | 2022-08-19 13:19 | PC.NURSE ---
MRI Patient to MRI with this nurse at 1200, uneventful.
--- NOTE | 2022-08-19 14:24 | P.PN_ITS ---
Subjective Subjective: Patient resting comfortably. Family present in the room in ICU 10. The son was present during this visit as well as his on mobile device on speaker phone. Vitals/I&O/Wt Last Vital Signs Temp 97.7 F 08/19/22 07:30 Pulse 84 08/19/22 13:00 Resp 16 08/19/22 13:00 BP 189/126 08/19/22 13:00 Pulse Ox 98 08/19/22 13:00 O2 Del Method Nasal Cannula 08/19/22 13:00 O2 Flow Rate 1.5 08/19/22 13:00 08/18/22 08/19/22 08/19/22 22:59 06:59 14:59 Intake Total 300 / 1198.75 1000 / 2198.75 0 / 0 Output Total 525 / 525 400 / 925 Balance -225 / 673.75 600 / 1273.75 0 / 0 Weight last 48 hrs Weight 114 lb 10.246 oz Weight 120 lb Physical Exam Narrative: Patient is resting comfortably. No apparent distress legs and feet are warm to the touch pulses palpable. Calves are supple. Patient appears much more comfortable when awoken. She does follow commands. HENMT: COMMON NORMALS: normocephalic and atraumatic HEAD & SCALP: normocephalic and atraumatic Resp: COMMON NORMALS: normal respiratory effort Cardio: COMMON NORMALS: regular rate and regular rhythm RATE: regular rate RHYTHM: regular rhythm GI: COMMON NORMALS: Soft to palpation and non-tender PALPATION: Yes Soft to palpation : COMMON NORMALS: Yes no CVA tenderness BLADDER/KIDNEY EXAM: Yes no CVA tenderness Back/Pelvis: COMMON NORMALS: no CVA tenderness Psych: COMMON NORMALS: cooperative Urinary Catheter Management: Dent: Cath Placed During This Visit: yes Reason for Continuing Indwelling Catheter: Accurate Measurement of Urinary Output in Critically Ill Patients Urinary Catheter Date of Insertion: 08/18/22 Urinary Catheter Time of Insertion: 13:31 Data 08/18/22 04:17 08/18/22 04:17 Micro: Microbiology 08/18/22 16:30 MRSA Culture - Final Nose 08/17/22 19:15 Blood Culture - Preliminary Blood NEGATIVE TO DATE 08/17/22 19:11 Blood Culture - Preliminary Blood NEGATIVE TO DATE MRI: Radiologist's impression: MR/MR lumbar spine wo con* [id number] IMPRESSION: Some images degraded by motion. ? 1.? Moderate to severe central canal stenosis L3-L4 progressed compared to p revious. 2.? Moderate central canal stenosis L4-L5 and L5-S1 also progressed compared to previous. 3.? Mild to moderate foraminal narrowing bilateral L3-L4 L4-L5 and L5-S1. 4.? Stable syrinx partially visualized in the lower thoracic cord. 5.? No visualized acute compression fractures A&P Assessment and plan (1) Chronic back pain: Reviewed the studies at length with the family. Discussed at this point there is nothing surgical we had to offer. There is no acute fractures evident. Would encourage physical therapy to work with mobilization as she is very deconditioned and was not very ambulatory prior to her hospital admission. Also discussed outpatient pain clinic which could offer injections to help relieve s ome of her pain as well. Encourage incentive spirometer for pulmonary toilet. Hospitalist team to manage her medically. We will be available if something changes. all questions were addressed. More than 50% of the time spent with the patient today involved coordination of care, counseling and discussion of conservative versus surgical treatment options. Total amount of time spent with the patient was 15 minutes. (2) Spinal stenosis, lumbar region, with neurogenic claudication: Attestations Medical Necessity Statement*: Defer to medical team Coding Level of Care Code Acute Code for [facility] Fwd Diagnoses Chronic back pain M54.9; G89.29 Spinal stenosis, lumbar region, with neurogenic claudication M48.062 Time Spent (min) 15
[2022-08-19] MEDS: oxyCODONE-APAP 5-325 mg Tablet 1 TAB PO (15:59)
[2022-08-19] MEDS: baclofen 10 mg Tablet PO (16:00)
--- NOTE | 2022-08-19 16:13 | PM.PN ---
Subjective Subjective: Patient was seen this morning, she continues to writhe in pain, she is alert enough to respond to her name, she can follow some commands such as squeezing my fingers, but continues to point towards her back, I am not able to do any neurologic testing such as testing her strength in bilateral extremities, due to inability to follow commands -Patient was reexamined in the afternoon, with orthopedic service, at bedside, he was discussing with family that there is no urgent surgical intervention required, MRI did not show any acute fracture, recommended pain management, physical therapy, outpatient follow-up -I also spoke to patient's son, and patient's daughter over the phone, discussed plan about pain management, inpatient physical therapy, placement to senior care facility issue that I face that I face currently, is her inability to follow commands at times, inability to swallow, and intractable pain, -We will have to watch her here in the hospital, have physical therapy work with her, control her pain, monitor mentation, hopefully have speech therapy come by and evaluate her hopefully she can swallow, she has not eaten in the last 24 hours, as she is a high aspiration risk, she is a high risk of protein calorie malnutrition, given her BMI, -As she is remained in bed for the last 4 to 5 days, she has a high risk of protein, nutrition, physical deconditioning, rapid muscle loss, further risk of UTIs especially as she has a Dent catheter, DTI's, DVTs, -Patient's family voiced understanding, currently patient is resting comfortably as she has received medications for her MRI -I spoken to nursing staff, I would avoid over sedating her, I want her to wake up, participate with physical therapy, speech therapy, Vitals/I&O/Wt Last Vital Signs Temp 97.7 F 08/19/22 07:30 Pulse 84 08/19/22 13:00 Resp 16 08/19/22 13:00 BP 189/126 08/19/22 13:00 Pulse Ox 98 08/19/22 13:00 O2 Del Method Nasal Cannula 08/19/22 13:00 O2 Flow Rate 1.5 08/19/22 13:00 08/19/22 08/19/22 08/19/22 06:59 14:59 22:59 Intake Total 1000 / 2198.75 0 / 0 Output Total 400 / 925 Balance 600 / 1273.75 0 / 0 Weight last 48 hrs Weight 52 kg Physical Exam Const: COMMON NORMALS: no acute distress ORIENTATION/CONSCIOUSNESS: Yes awake, Yes oriented to person and Yes confused; not oriented to place and not oriented to time Resp: COMMON NORMALS: normal respiratory effort, No retractions, No use of accessory muscles and clear to auscultation bilaterally AUSCULTATION: clear to auscultation bilaterally Cardio: COMMON NORMALS: regular rate, regular rhythm, S1 normal heart sound present and S2 normal heart sound present RATE: regular rate RHYTHM: regular rhythm HEART SOUNDS: S1 normal heart sound present and S2 normal heart sound present GI: COMMON NORMALS: Normal to inspection, nondistended, normoactive bowel sounds present, Soft to palpation and non-tender PALPATION: Yes Soft to palpation Extremity: COMMON NORMALS: no pedal edema Neuro: SENSORIUM/ORIENTATION: Yes oriented to person, No oriented to place and No oriented to time Urinary Catheter Management: Dent: Cath Placed During This Visit: yes Reason for Continuing Indwelling Catheter: Accurate Measurement of Urinary Output in Critically Ill Patients Urinary Catheter Date of Insertion: 08/18/22 Urinary Catheter Time of Insertion: 13:31 Data 08/18/22 04:17 08/18/22 04:17 Micro: Microbiology 08/18/22 16:30 MRSA Culture - Final Nose 08/17/22 19:15 Blood Culture - Preliminary Blood NEGATIVE TO DATE 08/17/22 19:11 Blood Culture - Preliminary Blood NEGATIVE TO DATE A&P Assessment and plan (1) Lumbar stenosis: (2) Pneumonitis: (3) Respiratory failure with hypoxia: (4) CVA, old, aphasia: (5) Chronic nausea: (6) Anxiety and depression: (7) Hyperlipidemia: (8) Hypertension: (9) COPD (chronic obstructive pulmonary disease): (10) Intractable back pain: (11) Protein calorie malnutrition: (12) Physical deconditioning: (13) Hypothyroidism: (14) Aspiration pneumonitis: (15) Aspiration pneumonia: (16) Inability to walk: (17) Falls: (18) Acute encephalopathy: Plan #Acute encephalopathy #Possible pneumonitis #Severe back pain, lumbar stenosis #Acute respiratory distress on admission however now stable and on 1 L nasal cannula, possibly medication associated with morphine, Ativan #History of COPD #History of anxiety and depression #History of stroke #Expressive aphasia chronic/nonverbal, as per documentation she has had CVA in 2014 and difficulty speaking and aphasia since then #Hypertension #Intractable back pain #Aspiration pneumonitis, aspiration pneumonia #Hypothyroidism -Neurochecks, aspiration precautions, avoid oversedation ? CT of the head shows old lacunar infarcts noted in the right cerebellar hemisphere, right thalamus, viviana, midbrain, left basal ganglia, moderate diffuse cerebral atrophy -As patient has had recurrent falls, likely secondary to cerebellar infarcts, PT OT, aspirin, statin -Given her multiple lacunar infarcts, continue telemetry monitoring, cardiac echo will have to consider a event monitor at discharge as these certainly could be embolic phenomenon from A-fib -She does have hypothyroidism, elevated TSH this certainly could be playing a role due to her weakness, will start on levothyroxine 50 mcg once daily check TSH daily CT abdomen pelvis ? At L3-L4, L4-L5 and L5-S1, there is severe stenosis of the spinal canal and foramina due to congenitally small canal, disc bulges and marked facet and ligamentum flavum hypertrophy.? No acute fracture. -With significant fall August 13, now with intractable pain -Intractable pain Dilaudid 0.5 every 4 hours, Ativan as needed for anxiety -Monitor respiratory status closely as she is developed apnea and bradycardia with morphine, Narcan if needed, will give another 10 mg of Decadron today -As received Decadron continue 6 mg IV push every 24 hours -Lidocaine patch -Orthopedic service has been consulted -Currently on baclofen -MRI of the back 1.? Moderate to severe central canal stenosis L3-L4 progressed compared to previous. 2.? Moderate central canal stenosis L4-L5 and L5-S1 also progressed compared to previous. 3.? Mild to moderate foraminal narrowing bilateral L3-L4 L4-L5 and L5-S1. 4.? Stable syrinx partially visualized in the lower thoracic cord. 5.? No visualized acute compression fractures. -PT OT ? Continue to monitor closely ? We will moved to general medical floors -Likely aspiration pneumonitis, with aspiration pneumonia, given groundglass opacities in both lungs, continue Rocephin ? Check sputum culture Gram stain, blood cultures, urine culture ? Hypothermia resolving -Has protein calorie malnutrition, consult dietary -Physical deconditioning, PT OT once pain is well controlled ? We will continue to monitor patient's respirations. She has increased risk of respiratory depression with narcotics, Narcan ? DuoNeb every 6 hours scheduled for now -Placed on normal saline 75 cc/h. - Full code SCDs, heparin SQ twice daily for DVT prophylaxis Plan for today family discussion, MRI, discussed with Ortho, monitor mentation, up out of bed, pain control, monitor mentation, spoke to patient's family, spoke to orthopedic service spoke to nursing staff Attestations Medical Necessity Statement*: Patient requires hot position for acute encephalopathy, pneumonitis, severe back pain, lumbar stenosis, deconditioning, protein calorie malnutrition Diagnoses Lumbar stenosis M48.061 Pneumonitis J18.9 Respiratory failure with hypoxia J96.91 CVA, old, aphasia I69.320 Chronic nausea R11.0 Anxiety and depression F41.9; F32.A Hyperlipidemia E78.5 Hypertension I10 COPD (chronic obstructive pulmonary disease) J44.9 Intractable back pain M54.9 Protein calorie malnutrition E46 Physical deconditioning R53.81 Hypothyroidism E03.9 Aspiration pneumonitis J69.0 Aspiration pneumonia J69.0 Inability to walk R26.2 Falls [id number].XXXA Acute encephalopathy G93.40
[2022-08-19] MEDS: cefTRIAXone 1,000 MG in sodium chloride 0.9% (plus) 50 ML 100 MG IV (17:43)
--- NOTE | 2022-08-19 18:20 | PC.NURSE ---
Transfer to [facility]. Patient's son, Jayden, called and notified of transfer.
[2022-08-19] MEDS: ketorolac 30 mg/mL INJ 15 MG IVP (23:07)
[2022-08-20] VITALS (17 sets, daily range): BP systolic 126–172; BP diastolic 66–100; PULSE 69–122; RESP 15–22; TEMP 36.4–36.9; O2SAT 94–97
[2022-08-20] MEDS: HYDROmorphone 1 mg/mL INJ 1 mL IVP ×5 (00:02→20:55)
[2022-08-20 07:24] LABS: Basophils # 0.1 10^3/uL (0.0-0.1); Basophils % 0.3 %; Eosinophils % 0.1 %; Hematocrit 40.2 % (37.0-47.0); Hemoglobin 12.8 g/dL (11.5-15.3); Lymphocytes # 2.7 10^3/uL (0.8-4.8); Lymphocytes % 14.6 %; Mean Corpuscular HGB Conc 31.8 g/dL (30.0-36.0); Mean Corpuscular Volume 94.4 fl (81-99); Mean Platelet Volume 10.3 fL (7.4-10.4); Monocytes # 1.3 10^3/uL (0.2-0.9); Monocytes % 6.9 %; Neutrophils # 14.16 10^3/uL (1.8-7.7); Neutrophils % 77.7 %; Nucleated Red Blood Cells % 0 %; Platelet Count 278 10^3/cmm (130-400); Red Blood Count 4.26 10^6/uL (4.1-5.3); Red Cell Distribution Width 13.3 % (12.1-15.1); White Blood Count 18.2 10^3/uL (4.0-10.0)
[2022-08-20] MEDS: LORazepam 2 mg/mL INJ 1 mL 0.5 MG IVP ×3 (08:09→22:54)
[2022-08-20] MEDS: ketorolac 30 mg/mL INJ 15 MG IVP ×2 (08:12→20:38)
[2022-08-20 08:39] LABS: Blood Urea Nitrogen 22 mg/dL (8-23); Carbon Dioxide 22 mmol/L (22-29); Chloride 100 mmol/L (98-107); Glucose 75 mg/dL (65-115); Osmolality Calculated 282 mOsm/kg (285-295); Sodium 135 mmol/L (136-145); T3 Free 1.7 PG/ML (2.0-4.4); Thyroid Stimulating Hormone 13.39 uIU/mL (0.27-4.20)
[2022-08-20 08:49] LABS: Anion Gap 16.7 (5-19); Potassium 3.7 mmol/L (3.5-5.1)
--- NOTE | 2022-08-20 09:20 | PC.CHAP ---
Pastoral Care Encounter/Spiritual Assessment Type of Contact [] Declined center specialists visit [] Patient/Family/Request visit [] Outpatient visit [] Follow-up visit [] Physician referral [] Code/Alert [x] Routine visit [] Staff referral [] Actively dying [] Patient sleeping [] Family support [] [] Out of room [] Palliative care [] [] Receiving care in room [] Pre-surgical visit [] Trauma [] Long length of stay [] ICU visit [] Other: Relational/Emotional Strength [] Patient feels connected with others/family/visitors/staff [x] Distress [] Loneliness/isolation [] Abandonment Spirituality of Patient [] Person of Marcie [] Attends Uatsdin of their Marcie [] Believes in Prayer [] Reads Bible or Caodaism materials [] There are Spiritual issues to be addressed Adult Daycare Coordinator Interventions [x] Prayer [] Active listening [x] Non-anxious presence [] Spiritual/emotional support [] Crisis/trauma care [] Spiritual counseling [] Bereavement support [] Provided bereavement packet [] Provided Bible/devotional materials [] Provided toy/stuffed animal, coloring book to patient or family member [] Provided Communion [] Anointing/[place] [] Salvation [] Completed spiritual assessment [] Other: Impact on Illness or Injury [] Angry [] Fearful [x] Anxious [x] Often cries [x] Exhaustion [] Unable to work [] Unable to attend yazdanism [] Unable to walk/stand [] Unable to read [] Unable to drive [] Unable to eat/drink [] Unable to sleep [] Unable to be with family [] Patient intubated [] Other: Summary Time spent with patient 5 min
--- NOTE | 2022-08-20 09:38 | XRR_ITS ---
PROCEDURE INFORMATION: Exam: XR Ribs Exam date and time: 08/20/2022 9:52 AM Age: 71 years old Clinical indication: Injury or trauma; Fall; Rib area, bilateral; Blunt trauma; Additional info: Rib fracture? TECHNIQUE: Imaging protocol: Radiologic exam of the of the ribs. Views: 3 views. Bilateral ribs. COMPARISON: CR (CHEST, ) 08/17/2022 5:15 PM FINDINGS: Bones/joints: Normal. Soft tissues: Normal. XR/XR ribs BI 3V* [id number] IMPRESSION: No acute findings.
--- NOTE | 2022-08-20 09:38 | XRR_ITS ---
PROCEDURE INFORMATION: Exam: XR Thoracic Spine Exam date and time: 08/20/2022 9:49 AM Age: 71 years old Clinical indication: Injury or trauma; Fall; Blunt trauma (contusions or hematomas) TECHNIQUE: Imaging protocol: Radiologic exam of the thoracic spine. Views: 3 views. COMPARISON: CT abdomen pelvis con [id number] 08/17/2022 5:58 PM FINDINGS: Bones/joints: No acute fracture or malalignment. Osteopenia. Disc spaces appear maintained. Soft tissues: Unremarkable. XR/XR thoracic spine 3V* [id number] IMPRESSION: No acute findings.
[2022-08-20] MEDS: heparin 5,000 unit/mL INJ 1 mL 5000 UNIT SUBCUT ×2 (09:52→22:43)
[2022-08-20] MEDS: dexamethasone 10 mg/mL INJ 6 MG IVP (09:53)
[2022-08-20 10:11] LABS: Cortisol Random 1.17 ug/dL (2.47-19.5)
[2022-08-20] MEDS: levothyroxine 100 mcg SDV 25 MCG IVP (10:30)
--- NOTE | 2022-08-20 11:04 | PC.SLP ---
TECHNICAL FELLOW holding off on assessment at this time due to pt pain, mental status.
--- NOTE | 2022-08-20 12:54 | PC.SOCIAL ---
Pg 2 IMM Explained to pt's family Pg 2 IMM. No questions voiced. Provided pt a copy. Initialed, dated, & timed a copy & placed in chart.
--- NOTE | 2022-08-20 17:15 | P.PN_ITS ---
Subjective Subjective: - Patient was examined multiple times throughout the morning and in the afternoon early in the morning she was seen with nursing staff she awakens to her name, but does not follow commands she keeps pointing at her right side, and writhing in pain, she is moaning and groaning, but does not have discernible words, she does not really squeeze my fingers, she does not wiggle her toes she does not smile for me pupils are equal round reactive to light she withdraws from pain -I thought initially she might of had had a bruised rib or rib fracture after fall so I did x-ray reviewed the x-ray report there is no acute fracture -She was again seen, she continues to have severe pain she is calling out and writhing in pain, which can be heard outside her room, she is on Dilaudid 1 mg every 4 hours also on Ativan, I started morphine 1 mg every 8 hours as needed for breakthrough pain if the Dilaudid wears off too soon -I have spoken to nursing staff and patient's family that I am worried about her pain doses of medication as when she was initially admitted in the emergency room, she went into respiratory depression requiring ICU admission due to pain medications and narcotics, and benzodiazepines -I had a meeting with patient's son at bedside -I was able to clarify he tells me for the last 3 to 4 weeks she is primarily been bedbound, currently the state that she is in she has been like this roughly he tells me for the last 3 to 4 weeks, she has been taking pain medications due to her severe pain, -He tells me that she has aphasia she does not really follow commands at times, she times can mouth her words, she tells me that in terms of feeding, family members assist with the feedings, but that has dramatically decreased in the last 3 to 4 weeks -Before last 3 to 4 weeks she was ambulating to some degree, but at baseline it was minimal -He is not exactly sure what happened in the last 4 weeks, but certainly when she had a fall on August 13 that significantly exacerbated her condition that is been going on for the last month -Currently she really does not follow commands, at baseline she is aphasic, but she keeps writhing in pain, I am not exactly sure what has caused all this b ecause about a month ago this is not her condition but over the last months son does confirm that this is how she has been primarily bedbound aggravated, and pain -I went to do a further work-up -Including an MRI of the brain to evaluate for possible stroke as she has had strokes in the past -The other thought is could she have an adrenal insufficiency given her low cortisol levels, I am going to put her on hydrocortisone and watch her cortisol levels -Her TSh is also elevated could this be myxedema I have started her on IV levothyroxine -I will follow her cultures, so far she has been afebrile, normotensive Vitals/I&O/Wt Last Vital Signs Temp 98.2 F 08/20/22 16:44 Pulse 87 08/20/22 16:44 Resp 17 08/20/22 16:44 BP 137/100 08/20/22 16:44 Pulse Ox 96 08/20/22 16:44 O2 Del Method Nasal Cannula 08/20/22 16:44 O2 Flow Rate 2 08/20/22 10:25 08/20/22 08/20/22 08/20/22 06:59 14:59 22:59 Output Total 320 / 2620 200 / 200 Balance -320 / -1245 -200 / -200 Physical Exam Const: COMMON NORMALS: no acute distress OTHER: Does not follow commands, pupils equal round reactive to light, no facial droop, she has spontaneous movement of upper lower extremities, but does not really follow commands Resp: COMMON NORMALS: normal respiratory effort, No retractions, No use of accessory muscles and clear to auscultation bilaterally AUSCULTATION: clear to auscultation bilaterally Cardio: COMMON NORMALS: regular rate, regular rhythm, S1 normal heart sound present and S2 normal heart sound present RATE: regular rate RHYTHM: regular rhythm HEART SOUNDS: S1 normal heart sound present and S2 normal heart sound present GI: COMMON NORMALS: Normal to inspection, nondistended, normoactive bowel sounds present and non-tender Extremity: COMMON NORMALS: no pedal edema Psych: COMMON NORMALS: mental status grossly normal Urinary Catheter Management: Dent: Cath Placed During This Visit: yes Reason for Continuing Indwelling Catheter: Accurate Measurement of Urinary Output in Critically Ill Patients Urinary Catheter Date of Insertion: 08/18/22 Urinary Catheter Time of Insertion: 13:31 Data 08/20/22 07:15 08/20/22 07:15 A&P Assessment and plan (1) Lumbar stenosis: (2) Pneumonitis: (3) Respiratory failure with hypoxia: (4) CVA, old, aphasia: (5) Chronic nausea: (6) Anxiety and depression: (7) Hyperlipidemia: (8) Hypertension: (9) COPD (chronic obstructive pulmonary disease): (10) Intractable back pain: (11) Protein calorie malnutrition: (12) Physical deconditioning: (13) Hypothyroidism: (14) Aspiration pneumonitis: (15) Aspiration pneumonia: (16) Inability to walk: (17) Falls: (18) Acute encephalopathy: Plan #Acute encephalopathy #Possible pneumonitis, possible aspiration pneumonia #Severe back pain, lumbar stenosis #Acute respiratory distress on admission however now stable and on 1 L nasal cannula, possibly medication associated with morphine, Ativan #History of COPD #History of anxiety and depression #History of stroke #Expressive aphasia chronic/nonverbal, as per documentation she has had CVA in 2013 and difficulty speaking and aphasia since then #Hypertension #Intractable back pain #Aspiration pneumonitis, aspiration pneumonia #Hypothyroidism -Continues to be encephalopathic, initially thought to be oversedation, then once or narcotics were reduced, her benzos were reduced then thought to be related to under sedation, however she continues to be encephalopathic, does not follow commands it is quite difficult as she has underlying aphasia but she does not follow commands family does confirm that for the last month she has been like this -Neurochecks, aspiration precautions, avoid oversedation ? CT of the head shows old lacunar infarcts noted in the right cerebellar hemisphere, right thalamus, viviana, midbrain, left basal ganglia, moderate diffuse cerebral atrophy -As patient has had recurrent falls, likely secondary to cerebellar infarcts, PT OT, aspirin, statin -Given her multiple lacunar infarcts, continue telemetry monitoring, cardiac echo will have to consider a event monitor at discharge as these certainly could be embolic phenomenon from A-fib -She does have hypothyroidism, elevated TSH this certainly could be playing a role due to her weakness her alteration in mentation, switch to IV levothyroxine 25 mcg once daily with daily TSH, T3, T4 -The other thought is that her cortisol levels are low could this be adrenal insufficiency she cannot take medications p.o.'s I will switch her to hydrocortisone 50 every 6 hours -The other thought is could she have had a brainstem stroke or a significant stroke, I will order an MRI -So far blood cultures negative, sputum cultures negative, remains in febrile, no significant electrolyte abnormalities -I have ordered a hep C panel, HIV, CRP, ammonia, ESR, CRP CT abdomen pelvis ? At L3-L4, L4-L5 and L5-S1, there is severe stenosis of the spinal canal and foramina due to congenitally small canal, disc bulges and marked facet and ligamentum flavum hypertrophy.? No acute fracture. -With significant fall August 13, now with intractable pain -Intractable pain Dilaudid 0.5 every 4 hours, Ativan as needed for anxiety -Monitor respiratory status closely as she is developed apnea and bradycardia with morphine, Narcan if needed, will give another 10 mg of Decadron today -As received Decadron continue 6 mg IV push every 24 hours -Lidocaine patch -Orthopedic service has been consulted -Currently on baclofen -MRI of the back 1.? Moderate to severe central canal stenosis L3-L4 progressed compared to previous. 2.? Moderate central canal stenosis L4-L5 and L5-S1 also progressed compared to previous. 3.? Mild to moderate foraminal narrowing bilateral L3-L4 L4-L5 and L5-S1. 4.? Stable syrinx partially visualized in the lower thoracic cord. 5.? No visualized acute compression fractures. -PT OT ? Continue to monitor closely ? We will moved to general medical floors -Likely aspiration pneumonitis, with aspiration pneumonia, given groundglass opacities in both lungs, continue Rocephin ? Check sputum culture Gram stain, blood cultures, urine culture ? Hypothermia resolved -Has protein calorie malnutrition, consult dietary -Physical deconditioning, PT OT once pain mentation is improved ? We will continue to monitor patient's respirations. She has increased risk of respiratory depression with narcotics, Narcan -As she is on multiple narcotics, and benzodiazepines, she has been placed on the bedside pulse ox, nursing staff have been advised to monitor very closely f or respiratory depression, she has Narcan as needed ? DuoNeb every 6 hours scheduled for now -Fluids have stopped - Full code SCDs, heparin SQ twice daily for DVT prophylaxis Plan for today family discussion, MRI monitor mentation, further blood work, started on hydrocortisone, IV levothyroxine, x-ray of the ribs, x-ray of the thoracic spine, Attestations Medical Necessity Statement*: Patient requires hospitalization for altered mental status, acute encephalopathy, potentially myxedema, potentially adrenal insufficiency, potentially stroke, further evaluation needed Diagnoses Lumbar stenosis M48.061 Pneumonitis J18.9 Respiratory failure with hypoxia J96.91 CVA, old, aphasia I69.320 Chronic nausea R11.0 Anxiety and depression F41.9; F32.A Hyperlipidemia E78.5 Hypertension I10 COPD (chronic obstructive pulmonary disease) J44.9 Intractable back pain M54.9 Protein calorie malnutrition E46 Physical deconditioning R53.81 Hypothyroidism E03.9 Aspiration pneumonitis J69.0 Aspiration pneumonia J69.0 Inability to walk R26.2 Falls W19.XXXA Acute encephalopathy G93.40
[2022-08-20] MEDS: morphine 4 mg/mL SDV 1 mL 1 MG IVP (17:55)
[2022-08-20] MEDS: hydrocortisone 100 mg/2 mL SDV 50 MG IVP ×2 (17:55→22:43)
[2022-08-20 18:04] LABS: Erythrocyte Sedimentation Rate 11 mm/hr (0-15)
[2022-08-20 18:21] LABS: Ammonia 36 umol/L (11-51)
[2022-08-20 18:29] LABS: Procalcitonin 0.05 ng/mL (0-0.5)
[2022-08-20 19:33] LABS: HIV 1 & 2 Antigen Non-Reactive (Non-Reactiv)
[2022-08-20 19:34] LABS: HIV 1 & 2 Antibody Non-Reactive (Non-Reactiv)
--- NOTE | 2022-08-20 19:46 | ECG_ITS ---
[facility] Test Date: 2022-08-20 Pat Name: Aneta Moody Department: Room: 264 Gender: Female Primary Clinician: : [id number] Requested By: Greta Gallagher Order Number: [id number] Mohsen MD: Elmer Alvarado M.D. Measurements Intervals [place] Rate: 123 P: 0 ND: 0 QRS: -15 QRSD: 83 T: 49 QT: 296 QTc: 425 Interpretive Statements ATRIAL FLUTTER/TACHYCARDIA WITH RAPID VENTRICULAR RESPONSE MINIMAL VOLTAGE CRITERIA FOR LVH, CONSIDER NORMAL VARIANT [MEETS CRITERIA IN ONE OF: R(aVL), S(V1), R(V5), R(V5/V6)+S(V1)] NONSPECIFIC ST & T-WAVE ABNORMALITY ABNORMAL RHYTHM ECG Compared to ECG 08/17/2022 20:32:31 Sinus bradycardia no longer present T-wave abnormality still present Electronically Signed On 08-21-2022 16:49:59 CDT by Elmer Alvarado M.D. [email or web address]
[2022-08-20] MEDS: metoprolol tartrate 1 mg/1 mL SDV 5 mL 2.5 MG IVP (20:39)
[2022-08-20] MEDS: cefTRIAXone 1,000 MG in sodium chloride 0.9% (plus) 50 ML 100 MG IV (21:09)
[2022-08-21] VITALS (16 sets, daily range): BP systolic 103–165; BP diastolic 35–79; PULSE 60–104; RESP 12–21; TEMP 36.4–36.8; O2SAT 94–97
[2022-08-21] MEDS: HYDROmorphone 1 mg/mL INJ 1 mL IVP ×6 (01:02→23:43)
[2022-08-21 01:49] LABS: Hepatitis A Antibody IgM Non-Reactive (Nonreactive); Hepatitis B Core IgM Non-Reactive (Nonreactive); Hepatitis B Surface Antigen Non-Reactive (Nonreactive); Hepatitis C Virus Antibody Non-Reactive (Nonreactive)
[2022-08-21] MEDS: LORazepam 2 mg/mL INJ 1 mL 0.5 MG IVP ×5 (02:58→23:43)
[2022-08-21] MEDS: morphine 4 mg/mL SDV 1 mL 1 MG IVP (03:30)
[2022-08-21] MEDS: hydrocortisone 100 mg/2 mL SDV 50 MG IVP ×2 (04:53→09:55)
[2022-08-21 06:37] LABS: Glucose Point of Care 116 mg/dL (70-110)
[2022-08-21 06:37] LABS: Glucose Point of Care 158 mg/dL (70-110)
[2022-08-21 06:37] LABS: Glucose Point of Care 147 mg/dL (70-110)
[2022-08-21] MEDS: ketorolac 30 mg/mL INJ 15 MG IVP (08:28)
[2022-08-21] MEDS: levothyroxine 100 mcg SDV 25 MCG IVP (09:56)
[2022-08-21] MEDS: heparin 5,000 unit/mL INJ 1 mL 5000 UNIT SUBCUT ×2 (09:57→23:27)
--- NOTE | 2022-08-21 10:15 | MR_ITS ---
WS: [id number] MRI HEAD WITHOUT CONTRAST TECHNIQUE: Fast imaging performed. Sagittal T1, T2 axial, T2 axial FLAIR, axial and coronal T1 images , axial susceptibility weighted imaging, axial diffusion weighted images, and coronal T2 images were obtained. CLINICAL INFORMATION: ams COMPARISON: CT August 17, 2022 FINDINGS: Fast imaging performed. Some images degraded by motion. Tiny focus of partially restricted diffusion in the RIGHT posterior guan radiata measuring 5 mm con sistent with acute to subacute ischemia. No other foci of restricted diffusion. Advanced small vessel changes. Moderate parenchymal volume loss. Small vessel changes in the viviana. Multiple chronic lacunar infarcts in the periventricular white matter, RIGHT basal ganglia, midbrain, viviana, and bilateral cerebellum. Normal vascular flow voids at the skull base. No extra-axial fluid c ollections. No evidence of mass or mass effect. Paranasal sinuses and mastoid air cells are well aera riaz. Mild central canal stenosis in the upper cervical spine. 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 Moderate symmetric atrophy temporal lobes and hippocampal formations. Normal optic chiasm and pituita ry infundibulum. MR/MR head wo con* [id number] IMPRESSION: 1. Tiny focus of restricted diffusion in RIGHT periventricular white matter co mpatible with a tiny focus of acute to subacute ischemia. 2. Advanced small vessel changes with moderate parenchymal volume loss. 3. Multiple chronic lacunar infarcts described above. 4. Chronic hemosiderin in the viviana. 5. Moderate symmetric atrophy temporal lobes and hippocampal formations. Notified Gurjit Alejandre MD at 08/21/2022 11:52 AM.
[2022-08-21] MEDS: LORazepam 2 mg/mL INJ 1 mL IVP (10:37)
[2022-08-21 10:53] LABS: Basophils % 0.1 %; Hemoglobin 13.8 g/dL (11.5-15.3); Lymphocytes # 0.9 10^3/uL (0.8-4.8); Lymphocytes % 6.2 %; Mean Corpuscular HGB Conc 32.9 g/dL (30.0-36.0); Mean Corpuscular Volume 91.3 fl (81-99); Mean Platelet Volume 10.5 fL (7.4-10.4); Monocytes # 0.9 10^3/uL (0.2-0.9); Neutrophils # 13.07 10^3/uL (1.8-7.7); Neutrophils % 86.8 %; Nucleated Red Blood Cells % 0 %; Platelet Count 361 10^3/cmm (130-400); Red Cell Distribution Width 13.3 % (12.1-15.1); White Blood Count 15.1 10^3/uL (4.0-10.0)
[2022-08-21 11:07] LABS: Phosphorus 3.2 mg/dL (2.5-4.5)
[2022-08-21 11:18] LABS: Anion Gap 18.5 (5-19); Blood Urea Nitrogen 30 mg/dL (8-23); Calcium 8.7 mg/dL (8.5-10.5); Carbon Dioxide 26 mmol/L (22-29); Chloride 101 mmol/L (98-107); Glucose 106 mg/dL (65-115); Osmolality Calculated 301 mOsm/kg (285-295); Potassium 3.5 mmol/L (3.5-5.1); Sodium 142 mmol/L (136-145); Thyroid Stimulating Hormone 3.62 uIU/mL (0.27-4.20)
[2022-08-21 11:38] LABS: Glucose Point of Care 108 mg/dL (70-110)
[2022-08-21 12:07] LABS: Free T4 Free Thyroxine 1.06 ng/dL (0.82-1.77); T3 Free 1.2 PG/ML (2.0-4.4)
--- NOTE | 2022-08-21 13:50 | PC.SLP ---
[employer] talked to charge nurse. Plans to send her home on comfort care. Pt not seen.
[2022-08-21] MEDS: lidocaine 5% Patch 1 PATCH TOPICAL (15:00)
[2022-08-21 16:47] LABS: Glucose Point of Care 119 mg/dL (70-110)
--- NOTE | 2022-08-21 17:41 | P.PN_ITS ---
Subjective Subjective: - Patient was examined mild both times throughout the morning, and into the evening, I had a family meeting with patient's brother and son in the evening time -Reviewed patient's lab, afebrile overnight, white count 15.1, random cortisol to 10, TSH 3.62, creatinine 1.1 -Does not follow neurologic testing this morning -She was examined early in the morning, -She does not follow commands, pupils are equal round sluggishly reactive to light, she withdraws from pain, decerebrate positioning, Babinski's reflex is upward bilaterally, she does not track light, she does not follow commands she does not respond to her name, she does not respond to commands, she continues to be hollering, moaning, -I spoke to patient's son at bedside, initially there was a thought of myxedema coma due to elevated TSH however I have replaced her levothyroxine her TSH is improved but her mentation has not improved -I also gave her's hydrocortisone for possible adrenal insufficiency given her low cortisol levels, she has received hydrocortisone for the last 24 hours without improvement in her mentation -She has been on antibiotic therapy for UTI she remains afebrile cultures are negative -No significant electrolyte abnormalities -Whenever she is off Dilaudid and Ativan, she continues to holler which seems as if she is in pain, she keeps putting her hand to her right rib cage, x-rays were negative for fracture but she might have a fracture there that has not showed up on x-ray, or even a bruised rib with her fall -Ammonia levels within normal limits -I ordered an MRI Tiny focus of partially restricted diffusion in the RIGHT posterior guan radiata measuring 5 mm consistent with acute to subacute ischemia. No other foci of restricted diffusion. Advanced small vessel changes. Moderate parenchymal volume loss. Small vessel changes in the viviana. Multiple chronic lacunar infarcts in the periventricular white matter, RIGHT basal ganglia, midbrain, viviana, and bilateral cerebellum. Normal vascular flow voids at the skull base. No extra-axial fluid collections. No evidence of mass or mass effect. Paranasal sinuses and mastoid air cells are well aerated. Mild central canal stenosis in the upper cervical spine. 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 Moderate symmetric atrophy temporal lobes and hippocampal formations. Normal optic chiasm and pituitary infundibulum. MR/MR head wo con* [id number] IMPRESSION: ? 1.? Tiny focus of restricted diffusion in RIGHT periventricular white matter compatible with a tiny focus of acute to subacute ischemia. 2.? Advanced small vessel changes with moderate parenchymal volume loss. 3.? Multiple chronic lacunar infarcts described above. 4.? Chronic hemosiderin in the viviana. 5.? Moderate symmetric atrophy temporal lobes and hippocampal formations. ? -Discussed findings with neurology and radiology -Patient has evidence of infarcts, and basal ganglia, midbrain, viviana, cerebell um, brainstem, timeframe unknown, -Spoke to neurology, -We will do a trial of Keppra given a gram of Keppra -Mentation has improved with Keppra -In the evening time I discussed findings with patient's family -Based upon all the information I have, what I can discern is is that sometime in the last month, patient has had a significant CVA, current MRI shows multiple lacunar infarcts, basal ganglia, midbrain, viviana, bilateral cerebellum, -This could be the reason why she was falling for the last month -Given the location of the infarct and worried that she had a significant brainstem event, and currently this explains her mental condition, she seems like she is in a semicomatose state -She has not responded to any of the medical interventions and this is now day 4 since she has been in the hospital and her mentation has not significantly improved according to family she has not eaten for the last week or so, she is remained in bed and her mentation has been like this for the last week or so -I advised family that my worry is that this is going to be her state, she is almost in a semicomatose state -Options that I gave to family was continue medical interventions, having her moved to a retirement having PT OT work with her, placing a PEG tube for nutrition, giving her time to see if her mentation improves -Versus easing her pain ease and her suffering and placing her on hospice, and moving into a retirement on hospice -Family wants to have a discussion with daughter about a decision, but they are not very keen on keeping her in the state, they do not want her to suffer, and they are not very keen on a PEG tube but they want to discuss it with the daughter -I also went over CODE STATUS, patient's family does not want chest compressions did not want her to be on a ventilator and they would want her to be DNR/DNI -I discussed CODE STATUS in detail, nursing staff at present, patient's CODE STATUS according to family's wishes was changed to DNR/DNI discussed risk of benefits he voiced understanding, all consents are, agreed to proceed -I advised family that currently we will continue on medical interventions await family's decision about what they want to do - Vitals/I&O/Wt Last Vital Signs Temp 98 F 08/21/22 16:00 Pulse 84 08/21/22 16:00 Resp 18 08/21/22 16:00 BP 103/70 08/21/22 16:00 Pulse Ox 97 08/21/22 15:51 O2 Del Method Nasal Cannula 08/21/22 15:51 O2 Flow Rate 3 08/21/22 13:34 08/21/22 08/21/22 08/21/22 06:59 14:59 22:59 Output Total 350 / 650 Balance -350 / -600 Physical Exam Const: COMMON NORMALS: no acute distress Resp: COMMON NORMALS: normal respiratory effort, No retractions, No use of accessory muscles and clear to auscultation bilaterally AUSCULTATION: clear to auscultation bilaterally Cardio: COMMON NORMALS: regular rate, regular rhythm, S1 normal heart sound present and S2 normal heart sound present RATE: regular rate RHYTHM: regular rhythm HEART SOUNDS: S1 normal heart sound present and S2 normal heart sound present GI: COMMON NORMALS: Normal to inspection, nondistended, normoactive bowel sounds present and non-tender Extremity: COMMON NORMALS: no pedal edema Urinary Catheter Management: Dent: Cath Placed During This Visit: yes Reason for Continuing Indwelling Catheter: Other Urinary Catheter Date of Insertion: 08/18/22 Urinary Catheter Time of Insertion: 13:31 Data 08/21/22 10:30 08/21/22 10:30 A&P Assessment and plan (1) Lumbar stenosis: (2) Pneumonitis: (3) Respiratory failure with hypoxia: (4) CVA, old, aphasia: (5) Chronic nausea: (6) Anxiety and depression: (7) Hyperlipidemia: (8) Hypertension: (9) COPD (chronic obstructive pulmonary disease): (10) Intractable back pain: (11) Protein calorie malnutrition: (12) Physical deconditioning: (13) Hypothyroidism: (14) Aspiration pneumonitis: (15) Aspiration pneumonia: (16) Inability to walk: (17) Falls: (18) Acute encephalopathy: (19) CVA (cerebral vascular accident): Plan #Acute CVA #Acute encephalopathy #Possible pneumonitis, possible aspiration pneumonia #Severe back pain, lumbar stenosis #Acute respiratory distress on admission however now stable and on 1 L nasal cannula, possibly medication associated with morphine, Ativan #History of COPD #History of anxiety and depression #History of stroke #Expressive aphasia chronic/nonverbal, as per documentation she has had CVA in 2013 and difficulty speaking and aphasia since then #Hypertension #Intractable back pain #Aspiration pneumonitis, aspiration pneumonia #Hypothyroidism -Continues to be encephalopathic, likely secondary to multiple CVAs -We will await found decision about comfort care versus placing a PEG tube and continue medical interventions CT abdomen pelvis ? At L3-L4, L4-L5 and L5-S1, there is severe stenosis of the spinal canal and foramina due to congenitally small canal, disc bulges and marked facet and ligamentum flavum hypertrophy.? No acute fracture. -With significant fall August 13, now with intractable pain -Intractable pain Dilaudid 0.5 every 4 hours, Ativan as needed for anxiety -Monitor respiratory status closely as she is developed apnea and bradycardia with morphine, Narcan if needed, will give another 10 mg of Decadron today -As received Decadron continue 6 mg IV push every 24 hours -Lidocaine patch -Orthopedic service has been consulted -Currently on baclofen -MRI of the back 1.? Moderate to severe central canal stenosis L3-L4 progressed compared to previous. 2.? Moderate central canal stenosis L4-L5 and L5-S1 also progressed compared to previous. 3.? Mild to moderate foraminal narrowing bilateral L3-L4 L4-L5 and L5-S1. 4.? Stable syrinx partially visualized in the lower thoracic cord. 5.? No visualized acute compression fractures. -PT OT ? Continue to monitor closely ? We will moved to general medical floors -Likely aspiration pneumonitis, with aspiration pneumonia, given groundglass opacities in both lungs, continue Rocephin ? Check sputum culture Gram stain, blood cultures, urine culture ? Hypothermia resolved -Has protein calorie malnutrition, consult dietary -Physical deconditioning, PT OT once pain mentation is improved ? We will continue to monitor patient's respirations. She has increased risk of respiratory depression with narcotics, Narcan -As she is on multiple narcotics, and benzodiazepines, she has been placed on the bedside pulse ox, nursing staff have been advised to monitor very closely for respiratory depression, she has Narcan as needed ? DuoNeb every 6 hours scheduled for now -Fluids have stopped - CODE STATUS changed to DNR/DNI SCDs, heparin SQ twice daily for DVT prophylaxis Plan for today family discussion, MRI,, spoke to nursing staff, spoke to patient's family, spoke to neurology, spoke to radiology Attestations Medical Necessity Statement*: Patient requires hospital mission for acute CVA and High Time for a total of 70 minutes, includes reviewing past or interval history, examining/interviewing patient, placing orders, counseling patient/family/other support, updating patient/family/other support, discussing plan of care with staff, communicating with other healthcare providers, documenting encounter and coordinating care Diagnoses Lumbar stenosis M48.061 Pneumonitis J18.9 Respiratory failure with hypoxia J96.91 CVA, old, aphasia I69.320 Chronic nausea R11.0 Anxiety and depression F41.9; F32.A Hyperlipidemia E78.5 Hypertension I10 COPD (chronic obstructive pulmonary disease) J44.9 Intractable back pain M54.9 Protein calorie malnutrition E46 Physical deconditioning R53.81 Hypothyroidism E03.9 Aspiration pneumonitis J69.0 Aspiration pneumonia J69.0 Inability to walk R26.2 Falls W19.XXXA Acute encephalopathy G93.40 CVA (cerebral vascular accident) I63.9
[2022-08-21 20:33] LABS: Glucose Point of Care 106 mg/dL (70-110)
[2022-08-21] MEDS: cefTRIAXone 1,000 MG in sodium chloride 0.9% (plus) 50 ML 100 MG IV (20:36)
[2022-08-22] VITALS (11 sets, daily range): BP systolic 98–178; BP diastolic 62–111; PULSE 68–105; RESP 14–20; TEMP 36.6–36.9; O2SAT 90–96
[2022-08-22] MEDS: HYDROmorphone 1 mg/mL INJ 1 mL IVP ×2 (05:11→10:19)
[2022-08-22] MEDS: LORazepam 2 mg/mL INJ 1 mL 0.5 MG IVP ×3 (05:12→21:34)
[2022-08-22 06:38] LABS: Glucose Point of Care 77 mg/dL (70-110)
[2022-08-22] MEDS: lidocaine 5% Patch 1 PATCH TOPICAL (10:18)
--- NOTE | 2022-08-22 10:41 | PC.SLP ---
[employer] talked to charge nurse. Plans to get her on comfort care. Pt not seen.
--- NOTE | 2022-08-22 10:45 | PC.SOCIAL ---
IMM Update pg 2 of IMM updated and reviewed w/ patient's son. Copy in chart dated, initialed and placed in chart.
[2022-08-22] MEDS: morphine 4 mg/mL SDV 1 mL 1 MG IVP (13:01)
--- NOTE | 2022-08-22 14:05 | PC.SOCIAL ---
IMM Update pg 2 of IMM updated and reviewed w/ patients son. Copy provided and Copy in chart dated and initialed.
[2022-08-22] MEDS: morphine 4 mg/mL SDV 1 mL IVP ×2 (15:13→21:35)
[2022-08-22] MEDS: morphine 10 mg/0.5 mL oral liq UD PO ×2 (17:23→20:37)
--- NOTE | 2022-08-22 18:23 | PM.PN ---
Subjective Subjective: - Patient was seen multiple times throughout the day, with a family meeting in the afternoon -Patient this morning does not follow commands, she is moaning, groaning, her speech does not make sense, pupils are equal round reactive to light, she does localize pain, but does not follow commands, does have decerebrate positioning, Babinski is bilateral upward, -I had a family meeting with patient's son, patient's brother, patient's daughter over the phone -I had again had extensive discussion about patient's clinical progress, -Had a extensive discussion as in my previous progress note about all my attempts to rule out other causes for her altered mentation -Including hypothyroidism, adrenal insufficiency, infections, electrolyte abnormalities, overmedication, under medications, however her mentation has not improved -Thus based upon the MRI findings her evidence of multiple CVAs, particularly the ones in the brainstem are quite concerning for her present condition -I had extensive discussion about options are available -Continue medical interventions, placing a PEG tube, and moving her to intermediate receiving physical therapy, speech therapy eval pain control -The other option was easing her pain ease and her suffering allowing her to pass away comfortably -Family wanted to know what was the likelihood of her recovering from that she has been here for 5 days I have had her on all significant medical interventions but I have not seen any significant improvement of her mentation, however time will tell if we want to give her time and we would have to feed her, have her get physical therapy and watch her at a [facility] facility, certainly there is a chance of some degree of recovery however at baseline from what it sounds from found that she has a low level of functioning, given her prior CVAs and productive aphasia -After discussing the risk and benefits of all options, they voiced understanding, all questions answered, agreed to proceed with comfort care -Discussed risk and benefits of comfort care, they voiced understanding, all questions answered, agreed to proceed, will admit for inpatient comfort care, pain control, and will work on outpatient hospice comfort care if she is here for 48 hours or longer Vitals/I&O/Wt Last Vital Signs Temp 97.8 F 08/22/22 07:59 Pulse 99 08/22/22 16:00 Resp 18 08/22/22 16:00 BP 119/76 08/22/22 16:00 Pulse Ox 90 08/22/22 16:00 O2 Del Method Nasal Cannula 08/22/22 16:00 O2 Flow Rate 2 08/22/22 07:26 08/22/22 08/22/22 08/22/22 06:59 14:59 22:59 Output Total 100 / 400 Balance -100 / -240 Physical Exam Const: COMMON NORMALS: no acute distress Eye: OTHER: Does not follow neurologic testing, does not follow commands Resp: COMMON NORMALS: normal respiratory effort, No retractions, No use of accessory muscles and clear to auscultation bilaterally AUSCULTATION: clear to auscultation bilaterally OTHER: At times does have apneic breathing Cardio: COMMON NORMALS: regular rate, regular rhythm, S1 normal heart sound present and S2 normal heart sound present RATE: regular rate RHYTHM: regular rhythm HEART SOUNDS: S1 normal heart sound present and S2 normal heart sound present GI: COMMON NORMALS: Normal to inspection, nondistended, normoactive bowel sounds present and non-tender Extremity: COMMON NORMALS: no pedal edema Urinary Catheter Management: Dent: Cath Placed During This Visit: yes Reason for Continuing Indwelling Catheter: Other Urinary Catheter Date of Insertion: 08/18/22 Urinary Catheter Time of Insertion: 13:31 Data 08/21/22 10:30 08/21/22 10:30 A&P Assessment and plan (1) Hospice care: (2) Need for comfort care: (3) Respiratory failure with hypoxia: (4) CVA, old, aphasia: (5) Chronic nausea: (6) Anxiety and depression: (7) Hyperlipidemia: (8) Hypertension: (9) COPD (chronic obstructive pulmonary disease): (10) Intractable back pain: (11) Protein calorie malnutrition: (12) Physical deconditioning: (13) Hypothyroidism: (14) Aspiration pneumonitis: (15) Aspiration pneumonia: (16) Inability to walk: (17) Falls: (18) Acute encephalopathy: (19) CVA (cerebral vascular accident): Plan #Comfort care, proceeding with comfort care -Comfort care orders placed #Acute CVA, on chronic CVA #Acute encephalopathy #Possible pneumonitis, possible aspiration pneumonia #Severe back pain, lumbar stenosis #Acute respiratory distress on admission however now stable and on 1 L nasal cannula, possibly medication associated with morphine, Ativan #History of COPD #History of anxiety and depression #History of stroke #Expressive aphasia chronic/nonverbal, as per documentation she has had CVA in 2014 and difficulty speaking and aphasia since then #Hypertension #Intractable back pain #Aspiration pneumonitis, aspiration pneumonia #Hypothyroidism -Continues to be encephalopathic, likely secondary to multiple CVAs -We will await found decision about comfort care versus placing a PEG tube and continue medical interventions CT abdomen pelvis ? At L3-L4, L4-L5 and L5-S1, there is severe stenosis of the spinal canal and foramina due to congenitally small canal, disc bulges and marked facet and ligamentum flavum hypertrophy.? No acute fracture. -With significant fall August 13, now with intractable pain -Intractable pain Dilaudid 0.5 every 4 hours, Ativan as needed for anxiety -Monitor respiratory status closely as she is developed apnea and bradycardia with morphine, Narcan if needed, will give another 10 mg of Decadron today -As received Decadron continue 6 mg IV push every 24 hours -Lidocaine patch -Orthopedic service has been consulted -Currently on baclofen -MRI of the back 1.? Moderate to severe central canal stenosis L3-L4 progressed compared to previous. 2.? Moderate central canal stenosis L4-L5 and L5-S1 also progressed compared to previous. 3.? Mild to moderate foraminal narrowing bilateral L3-L4 L4-L5 and L5-S1. 4.? Stable syrinx partially visualized in the lower thoracic cord. 5.? No visualized acute compression fractures. -PT OT ? Continue to monitor closely ? We will moved to general medical floors -Likely aspiration pneumonitis, with aspiration pneumonia, given groundglass opacities in both lungs, continue Rocephin ? Check sputum culture Gram stain, blood cultures, urine culture ? Hypothermia resolved -Has protein calorie malnutrition, consult dietary -Physical deconditioning, PT OT once pain mentation is improved ? We will continue to monitor patient's respirations. She has increased risk of respiratory depression with narcotics, Narcan -As she is on multiple narcotics, and benzodiazepines, she has been placed on the bedside pulse ox, nursing staff have been advised to monitor very closely for respiratory depression, she has Narcan as needed ? DuoNeb every 6 hours scheduled for now -Fluids have stopped Plan for today -I had a family meeting with patient's son, patient's brother, patient's daughter over the phone -I had again had extensive discussion about patient's clinical progress, -Had a extensive discussion as in my previous progress note about all my attempts to rule out other causes for her altered mentation -Including hypothyroidism, adrenal insufficiency, infections, electrolyte abnormalities, overmedication, under medications, however her mentation has not improved -Thus based upon the MRI findings her evidence of multiple CVAs, particularly the ones in the brainstem are quite concerning for her present condition -I had extensive discussion about options are available -Continue medical interventions, placing a PEG tube, and moving her to intermediate receiving physical therapy, speech therapy eval pain control -The other option was easing her pain ease and her suffering allowing her to pass away comfortably -Family wanted to know what was the likelihood of her recovering from that she has been here for 5 days I have had her on all significant medical interventions but I have not seen any significant improvement of her mentation, however time will tell if we want to give her time and we would have to feed her, have her get physical therapy and watch her at a [facility] facility, certainly there is a chance of some degree of recovery however at baseline from what it sounds from found that she has a low level of functioning, given her prior CVAs and productive aphasia -After discussing the risk and benefits of all options, they voiced understanding, all questions answered, agreed to proceed with comfort care -Discussed risk and benefits of comfort care, they voiced understanding, all questions answered, agreed to proceed, will admit for inpatient comfort care, pain control, and will work on outpatient hospice comfort care if she is here for 48 hours or longer Attestations Medical Necessity Statement*: Patient requires hospitalization for comfort care Coding Level of Care Code 63476 High Time for a total of 80 minutes, includes reviewing past or interval history, examining/interviewing patient, placing orders, counseling patient/family/other support, updating patient/family/other support, discussing plan of care with staff, communicating with other healthcare providers, documenting encounter and coordinating care Diagnoses Hospice care Z51.5 Need for comfort care Respiratory failure with hypoxia J96.91 CVA, old, aphasia I69.320 Chronic nausea R11.0 Anxiety and depression F41.9; F32.A Hyperlipidemia E78.5 Hypertension I10 COPD (chronic obstructive pulmonary disease) J44.9 Intractable back pain M54.9 Protein calorie malnutrition E46 Physical deconditioning R53.81 Hypothyroidism E03.9 Aspiration pneumonitis J69.0 Aspiration pneumonia J69.0 Inability to walk R26.2 Falls W19.XXXA Acute encephalopathy G93.40 CVA (cerebral vascular accident) I63.9
[2022-08-23] VITALS (8 sets, daily range): BP systolic 105–133; BP diastolic 73–89; PULSE 88–116; RESP 12–22; TEMP 36.5–37; O2SAT 90–95
[2022-08-23] MEDS: morphine 10 mg/0.5 mL oral liq UD PO ×9 (00:14→23:35)
[2022-08-23] MEDS: LORazepam 2 mg/mL INJ 1 mL 0.5 MG IVP (03:18)
[2022-08-23] MEDS: morphine 4 mg/mL SDV 1 mL IVP ×2 (03:18→13:47)
[2022-08-23] MEDS: LORazepam 2 mg/mL INJ 1 mL 1 MG IVP ×2 (10:27→13:48)
[2022-08-23] MEDS: lidocaine 5% Patch 1 PATCH TOPICAL ×2 (10:29→20:49)
--- NOTE | 2022-08-23 17:08 | P.PN_ITS ---
Subjective Subjective: Patient was seen this morning, she does wake up, does not follow commands, she is moaning in pain, family at at bedside, tachypneic is tachycardic Vitals/I&O/Wt Last Vital Signs Temp 97.7 F 08/23/22 03:54 Pulse 101 H 08/23/22 15:25 Resp 12 08/23/22 15:25 BP 132/84 08/23/22 15:25 Pulse Ox 92 08/23/22 15:25 O2 Del Method Nasal Cannula 08/23/22 15:25 O2 Flow Rate 2 08/22/22 20:00 08/23/22 08/23/22 08/23/22 06:59 14:59 22:59 Intake Total 0 / 0 Output Total 50 / 225 Balance -50 / -225 0 / 0 Physical Exam Const: GENERAL APPEARANCE: lethargic ORIENTATION/CONSCIOUSNESS: Yes confused, Yes patient obtunded and Yes lethargic Resp: COMMON NORMALS: normal respiratory effort, No retractions and No use of accessory muscles AUSCULTATION: crackles Cardio: COMMON NORMALS: regular rhythm, S1 normal heart sound present and S2 normal heart sound present RATE: tachycardic RHYTHM: regular rhythm HEART SOUNDS: S1 normal heart sound present and S2 normal heart sound present GI: COMMON NORMALS: Normal to inspection, nondistended, normoactive bowel sounds present and non-tender Extremity: COMMON NORMALS: no pedal edema Neuro: SENSORIUM/ORIENTATION: Yes lethargic Urinary Catheter Management: Dent: Cath Placed During This Visit: yes Reason for Continuing Indwelling Catheter: Other Urinary Catheter Date of Insertion: 08/18/22 Urinary Catheter Time of Insertion: 13:31 Data 08/21/22 10:30 08/21/22 10:30 Micro: Microbiology 08/17/22 19:15 Blood Culture - Final Blood NO GROWTH AFTER 5 DAYS 08/17/22 19:11 Blood Culture - Final Blood NO GROWTH AFTER 5 DAYS A&P Assessment and plan (1) Hospice care: (2) Need for comfort care: (3) Respiratory failure with hypoxia: (4) CVA, old, aphasia: (5) Chronic nausea: (6) Anxiety and depression: (7) Hyperlipidemia: (8) Hypertension: (9) COPD (chronic obstructive pulmonary disease): (10) Intractable back pain: (11) Protein calorie malnutrition: (12) Physical deconditioning: (13) Hypothyroidism: (14) Aspiration pneumonitis: (15) Aspiration pneumonia: (16) Inability to walk: (17) Falls: (18) Acute encephalopathy: (19) CVA (cerebral vascular accident): Plan #Comfort care, proceeding with comfort care -Comfort care orders placed #Acute CVA, on chronic CVA #Acute encephalopathy #Possible pneumonitis, possible aspiration pneumonia #Severe back pain, lumbar stenosis #Acute respiratory distress on admission however now stable and on 1 L nasal cannula, possibly medication associated with morphine, Ativan #History of COPD #History of anxiety and depression #History of stroke #Expressive aphasia chronic/nonverbal, as per documentation she has had CVA in 2013 and difficulty speaking and aphasia since then #Hypertension #Intractable back pain #Aspiration pneumonitis, aspiration pneumonia #Hypothyroidism -Continues to be encephalopathic, likely secondary to multiple CVAs -We will await found decision about comfort care versus placing a PEG tube and continue medical interventions CT abdomen pelvis ? At L3-L4, L4-L5 and L5-S1, there is severe stenosis of the spinal canal and foramina due to congenitally small canal, disc bulges and marked facet and ligamentum flavum hypertrophy.? No acute fracture. -With significant fall August 13, now with intractable pain -Intractable pain Dilaudid 0.5 every 4 hours, Ativan as needed for anxiety -Monitor respiratory status closely as she is developed apnea and bradycardia with morphine, Narcan if needed, will give another 10 mg of Decadron today -As received Decadron continue 6 mg IV push every 24 hours -Lidocaine patch -Orthopedic service has been consulted -Currently on baclofen -MRI of the back 1.? Moderate to severe central canal stenosis L3-L4 progressed compared to previous. 2.? Moderate central canal stenosis L4-L5 and L5-S1 also progressed compared to previous. 3.? Mild to moderate foraminal narrowing bilateral L3-L4 L4-L5 and L5-S1. 4.? Stable syrinx partially visualized in the lower thoracic cord. 5.? No visualized acute compression fractures. -PT OT ? Continue to monitor closely ? We will moved to general medical floors -Likely aspiration pneumonitis, with aspiration pneumonia, given groundglass opacities in both lungs, continue Rocephin ? Check sputum culture Gram stain, blood cultures, urine culture ? Hypothermia resolved -Has protein calorie malnutrition, consult dietary -Physical deconditioning, PT OT once pain mentation is improved ? We will continue to monitor patient's respirations. She has increased risk of respiratory depression with narcotics, Narcan -As she is on multiple narcotics, and benzodiazepines, she has been placed on the bedside pulse ox, nursing staff have been advised to monitor very closely for respiratory depression, she has Narcan as needed ? DuoNeb every 6 hours scheduled for now -Fluids have stopped Plan for today -I had a family meeting with patient's son, patient's brother, patient's daughter over the phone -I had again had extensive discussion about patient's clinical progress, -Had a extensive discussion as in my previous progress note about all my attempts to rule out other causes for her altered mentation -Including hypothyroidism, adrenal insufficiency, infections, electrolyte abnormalities, overmedication, under medications, however her mentation has not improved -Thus based upon the MRI findings her evidence of multiple CVAs, particularly the ones in the brainstem are quite concerning for her present condition -I had extensive discussion about options are available -Continue medical interventions, placing a PEG tube, and moving her to long term receiving physical therapy, speech therapy eval pain control -The other option was easing her pain ease and her suffering allowing her to pass away comfortably -Family wanted to know what was the likelihood of her recovering from that she has been here for 5 days I have had her on all significant medical interventions but I have not seen any significant improvement of her mentation, however time will tell if we want to give her time and we would have to feed her, have her get physical therapy and watch her at a residential facility, certainly there is a chance of some degree of recovery however at baseline from what it sounds from found that she has a low level of functioning, given her prior CVAs and productive aphasia -After discussing the risk and benefits of all options, they voiced understanding, all questions answered, agreed to proceed with comfort care -Discussed risk and benefits of comfort care, they voiced understanding, all questions answered, agreed to proceed, will admit for inpatient comfort care, pain control, and will work on outpatient hospice comfort care if she is here for 48 hours or longer Attestations Medical Necessity Statement*: Patient requires hospitalization for inpatient comfort care Diagnoses Hospice care Z51.5 Need for comfort care Respiratory failure with hypoxia J96.91 CVA, old, aphasia I69.320 Chronic nausea R11.0 Anxiety and depression F41.9; F32.A Hyperlipidemia E78.5 Hypertension I10 COPD (chronic obstructive pulmonary disease) J44.9 Intractable back pain M54.9 Protein calorie malnutrition E46 Physical deconditioning R53.81 Hypothyroidism E03.9 Aspiration pneumonitis J69.0 Aspiration pneumonia J69.0 Inability to walk R26.2 Falls W19.XXXA Acute encephalopathy G93.40 CVA (cerebral vascular accident) I63.9
[2022-08-24] VITALS: BP 91/58; PULSE 96; RESP 14; TEMP 37.2; O2SAT 94
[2022-08-24] MEDS: morphine 10 mg/0.5 mL oral liq UD PO ×4 (02:05→11:51)
[2022-08-24 04:00] VITALS: BP 112/79; PULSE 88; RESP 15; TEMP 36.4; O2SAT 90
[2022-08-24 08:00] VITALS: BP 91/60; PULSE 18; RESP 18; TEMP 35; O2SAT 89
[2022-08-24] MEDS: LORazepam 2 mg/mL INJ 1 mL 1 MG IVP (09:26)
--- NOTE | 2022-08-24 10:32 | PC.SOCIAL ---
IMM Updated Updated pt's son on IMM. No questions voiced. Provided him a copy. Initialed, dated, & timed copy in chart.
--- NOTE | 2022-08-24 11:13 | PM.DCS ---
Discharge Providers Date of Admission: 08/17/22 21:21 Date of Discharge: August 24, 2022 Attending Provider at Admission: Nory Pino MD Attending Provider at Discharge: Gurjit Alejandre MD Primary Care Provider: Steve Velez MD Diagnoses at Discharge Discharge Diagnosis (1) Hospice care: Status: Acute (2) Need for comfort care: Status: Acute (3) Respiratory failure with hypoxia: Status: Acute (4) CVA, old, aphasia: Status: Acute Permanent problem details: CVA 2013 (5) Chronic nausea: Status: Acute (6) Anxiety and depression: Status: Acute (7) Hyperlipidemia: Status: Acute (8) Hypertension: Status: Acute (9) COPD (chronic obstructive pulmonary disease): Status: Acute (10) Intractable back pain: Status: Acute (11) Protein calorie malnutrition: Status: Acute (12) Physical deconditioning: Status: Acute (13) Hypothyroidism: Status: Acute (14) Aspiration pneumonitis: Status: Acute (15) Aspiration pneumonia: Status: Acute (16) Inability to walk: Status: Acute (17) Falls: Status: Acute (18) Acute encephalopathy: Status: Acute (19) CVA (cerebral vascular accident): Status: Acute Reason for Visit Reason for Visit: BACK PAIN Hospital Course Hospital Course Aneta Moody is a 71 year old female With past medical history of anxiety depression, COPD, CVA, aphasia, hyperlipidemia, hypertension, chronic back pain, osteoarthritis who was brought to the hospital today for becoming less responsive, and severe pain Patient was admitted to [facility], for her recent fall, and severe pain, she underwent orthopedic evaluation, MRI of her back, recommended medical management.. For her nonresponsiveness, severe pain, encephalopathy, underwent extensive evaluation, likely acute on chronic CVAs in the last month. Patient MRI showed Multiple chronic lacunar infarcts in the periventricular white matter, RIGHT basal ganglia, midbrain, viviana, and bilateral cerebellum,Tiny focus of restricted diffusion in RIGHT periventricular white matter compatible with a tiny focus of acute to subacute ischemia. Patient was monitored for over 96 hours here in the hospital however her mentation did not improved. She did also get evaluated for hypothyroidism, adrenal insufficiency, seizures, electrolyte abnormalities, possible UTI as a source of her encephalopathy however after 96 hours of treatment her mentation did not improve. Due to her persistent nonresponsiveness, her clinical state was moaning and groaning which was presumed that she was in pain, and her clinical presentation was that of someone in a semivegetative state. What I discussed with family in detail detail is that I think in the last month or so she has had gradual decline, sometime within the last month, she has had multiple CVAs, that it affected critical areas of the brain, including the brainstem, given her risk factors of smoking, her prior history of CVA, and the history that have obtained from family members. After discussing the risks and benefits of all options, patient's family voiced understanding, all questions answered, agreed to proceed with hospice. She received 48 hours of inpatient hospice, discharged to nursing home facility on hospice Physical Exam Const: COMMON NORMALS: no acute distress OTHER: Nonresponsive this morning, intermittent tachypnea and apnea, Resp: COMMON NORMALS: normal respiratory effort, No retractions, No use of accessory muscles and clear to auscultation bilaterally AUSCULTATION: clear to auscultation bilaterally Cardio: COMMON NORMALS: regular rate, regular rhythm, S1 normal heart sound present and S2 normal heart sound present RATE: regular rate RHYTHM: regular rhythm HEART SOUNDS: S1 normal heart sound present and S2 normal heart sound present GI: COMMON NORMALS: Normal to inspection, nondistended, normoactive bowel sounds present and non-tender Extremity: COMMON NORMALS: no pedal edema Urinary Catheter Management: Dent: Cath Placed During This Visit: yes Reason for Continuing Indwelling Catheter: Hospice/Comfort/Palliative Care Urinary Catheter Date of Insertion: 08/18/22 Urinary Catheter Time of Insertion: 13:31 Discharge Data Studies Completed and Pending Completed Studies During Hospitalization Category Date Time Status CT abdomen pelvis wo con [id number] Stat Cat Scan 08/17/22 16:[address] head wo con* [id number] Stat Cat Scan 08/17/22 16:[address] neck w con* [id number] Stat Cat Scan 08/17/22 16:30 Completed XR chest 1V portable [id number] Stat Exams 08/17/22 16:22 Completed XR ribs BI 3V* [id number] Routine Exams 08/20/22 09:38 Completed XR thoracic spine 3V* [id number] Routine Exams 08/20/22 09:38 Completed MR head wo con* [id number] Routine MRI 08/21/22 10:15 Completed MR lumbar spine wo con* [id number] Routine MRI 08/19/22 09:30 Completed CV. echo complete* [id number] Routine Ultrasound 08/18/22 22:15 Completed Pending at discharge Category Date Time Status SARS Covid-2 Antigen Stat Lab 08/24/22 10:36 Uncollected Sputum Culture and Gram Stain Stat Lab 08/17/22 22:17 Uncollected Urinalysis Routine Lab 08/17/22 22:16 Uncollected Radiology Impressions Abdomen/Pelvis CT 08/17/22 16:21 IMPRESSION: 1. No acute abnormality. 2. At L3-L4, L4-L5 and L5-S1, there is severe stenosis of the spinal canal and foramina due to congenitally small canal, disc bulges and marked facet and ligamentum flavum hypertrophy. No acute fracture. 3. There is ground-glass opacity in the lung bases compatible with atelectasis, mild edema or pneumonitis. Chest X-Ray 08/17/22 16:22 IMPRESSION: No acute findings. Neck CT 08/17/22 16:30 IMPRESSION: 1. No mass or adenopathy. 2. Mild diffuse ground-glass opacity in the lungs concerning for edema or pneumonitis. Head CT 08/17/22 16:35 IMPRESSION: 1. No acute intracranial abnormality. 2. Old lacunar infarcts noted in the right cerebellar hemisphere, right thalamus, viviana/midbrain, and left basal ganglia. 3. Moderate diffuse cerebral atrophy and sequela of chronic small vessel ischemic disease. Lumbar Spine MRI 08/19/22 09:30 IMPRESSION: Some images degraded by motion. 1. Moderate to severe central canal stenosis L3-L4 progressed compared to previous. 2. Moderate central canal stenosis L4-L5 and L5-S1 also progressed compared to previous. 3. Mild to moderate foraminal narrowing bilateral L3-L4 L4-L5 and L5-S1. 4. Stable syrinx partially visualized in the lower thoracic cord. 5. No visualized acute compression fractures. Ribs X-Ray 08/20/22 09:38 IMPRESSION: No acute findings. Thoracic Spine X-Ray 08/20/22 09:38 IMPRESSION: No acute findings. Head MRI 08/21/22 10:15 IMPRESSION: 1. Tiny focus of restricted diffusion in RIGHT periventricular white matter compatible with a tiny focus of acute to subacute ischemia. 2. Advanced small vessel changes with moderate parenchymal volume loss. 3. Multiple chronic lacunar infarcts described above. 4. Chronic hemosiderin in the viviana. 5. Moderate symmetric atrophy temporal lobes and hippocampal formations. Notified Gurjit Alejandre MD at 08/21/2022 11:52 AM. Laboratory Results WBC 15.1 10^3/uL (4.0-10.0) H 08/21/22 10:30 RBC 4.60 10^6/uL (4.1-5.3) 08/21/22 10:30 Hgb 13.8 g/dL (11.5-15.3) 08/21/22 10:30 Hct 42.0 % (37.0-47.0) 08/21/22 10:30 MCV 91.3 fl (81-99) 08/21/22 10:30 MCH 30.0 pg (28.0-34.0) 08/21/22 10:30 MCHC 32.9 g/dL (30.0-36.0) 08/21/22 10:30 RDW 13.3 % (12.1-15.1) 08/21/22 10:30 Plt Count 361 10^3/cmm (130-400) 08/21/22 10:30 MPV 10.5 fL (7.4-10.4) H 08/21/22 10:30 Neut % (Auto) 86.8 % 08/21/22 10:30 Lymph % (Auto) 6.2 % 08/21/22 10:30 [place] % (Auto) 6.0 % 08/21/22 10:30 Eos % (Auto) 0.0 % 08/21/22 10:30 Baso % (Auto) 0.1 % 08/21/22 10:30 Neut # (Auto) 13.07 10^3/uL (1.8-7.7) H 08/21/22 10:30 Lymph # (Auto) 0.9 10^3/uL (0.8-4.8) 08/21/22 10:30 [place] # (Auto) 0.9 10^3/uL (0.2-0.9) 08/21/22 10:30 Eos # (Auto) 0.0 10^3/uL (0.0-0.8) 08/21/22 10:30 Baso # (Auto) 0.0 10^3/uL (0.0-0.1) 08/21/22 10:30 Nucleated RBC % (auto) 0 % 08/21/22 10:30 Nucleated RBCs # 0.0 /100WBC 08/21/22 10:30 ESR 11 mm/hr (0-15) 08/20/22 17:43 D-Dimer 1.11 ug/mIFEU (0-0.59) H 08/17/22 17:01 Specimen Type Arterial 08/18/22 03:45 Sample Site Brachial, left 08/18/22 03:45 ABG pH 7.32 (7.35-7.45) L 08/18/22 03:45 ABG pCO2 51.3 mmHg (35-45) H 08/18/22 03:45 ABG pO2 80.2 mmHg (80.0-100.0) 08/18/22 03:45 ABG HCO3 26.1 mmol/L (22-26) H 08/18/22 03:45 ABG O2 Saturation 96.2 08/18/22 03:45 ABG Base Excess -0.8 mmol/L (-2.0-2.0) 08/18/22 03:45 Robbie Test N/a 08/18/22 03:45 A-a O2 Gradient 7.2 mmHg (5-10) 08/18/22 03:45 Hematocrit 41.9 % (37-47) 08/18/22 03:45 Hgb O2 Saturation 94.4 % (95-100) L 08/18/22 03:45 Carboxyhemoglobin 1.4 %THgb (0.4-20.1) 08/18/22 03:45 Methemoglobin 0.5 % (0.4-1.5) 08/18/22 03:45 Total Hemoglobin 13.7 g/dL (12-16) 08/18/22 03:45 Sodium 143.0 mmol/L (131-143) 08/18/22 03:45 Potassium 3.8 mmol/L (3.5-5.0) 08/18/22 03:45 Glucose 156.0 mg/dL (70-115) H 08/18/22 03:45 Ionized Calcium 1.2 mmol/L (1.1-1.4) 08/18/22 03:45 O2 Delivery Device Nc 08/18/22 03:45 O2 Liters/Min 2.0 % 08/18/22 03:45 FiO2 28.0 % 08/18/22 03:45 Market Specialist ID Cecily 08/18/22 03:45 Sodium 142 mmol/L (136-145) 08/21/22 10:30 Potassium 3.5 mmol/L (3.5-5.1) 08/21/22 10:30 Chloride 101 mmol/L (98-107) 08/21/22 10:30 Carbon Dioxide 26 mmol/L (22-29) 08/21/22 10:30 Anion Gap 18.5 (5-19) 08/21/22 10:30 BUN 30 mg/dL (8-23) H 08/21/22 10:30 Creatinine 1.1 mg/dL (0.5-0.9) H 08/21/22 10:30 GFR Calculation Not Reportable 08/21/22 10:30 Glucose 106 mg/dL (65-115) 08/21/22 10:30 POC Glucose 77 mg/dL (70-110) 08/22/22 06:30 Calculated Osmolality 301 mOsm/kg (285-295) H 08/21/22 10:30 Lactic Acid 0.7 mmol/L (0.5-2.2) 08/17/22 19:08 Calcium 8.7 mg/dL (8.5-10.5) 08/21/22 10:30 Phosphorus 3.2 mg/dL (2.5-4.5) 08/21/22 10:30 Magnesium 1.9 mg/dL (1.7-2.3) 08/18/22 04:17 Total Bilirubin 0.2 mg/dL (0.15-1.2) 08/17/22 17:01 AST 18 U/L (0-32) 08/17/22 17:01 ALT 13 U/L (0-33) 08/17/22 17:01 Alkaline Phosphatase 112 U/L (35-105) H 08/17/22 17:01 Ammonia 36 umol/L (11-51) 08/20/22 17:43 Creatine Kinase 99 U/L (26-192) 08/17/22 17:01 Troponin T Baseline 21 ng/L (0-10) H 08/17/22 17:01 Troponin T 120 Minute 21.76 ng/L (0-10) H 08/17/22 19:08 Delta Troponin T 0.76 ABS# (0-10) 08/17/22 19:08 Troponin T Hi Sens 6Hr 19.06 ng/L (0-10) H 08/17/22 22:58 Troponin T Hi Sens 6Hr Delta -1.94 ng/L (0-12) L 08/17/22 22:58 C-Reactive Protein 3.0 mg/L (0.0-4.9) 08/21/22 10:30 NT-Pro-B Natriuret Pep 207 pg/mL (0-125) H 08/17/22 19:08 Total Protein 6.3 g/dL (6.6-8.7) L 08/17/22 17:01 Albumin 3.9 g/dL (3.5-5.2) 08/17/22 17:01 Globulin 2.4 g/dL (1.3-4.6) 08/17/22 17:01 Lipase 39 U/L (13-60) 08/17/22 17:01 Vitamin B12 238 pg/mL (232-1245) 08/18/22 04:17 Procalcitonin 0.05 ng/mL (0-0.5) 08/20/22 17:43 TSH 3.62 uIU/mL (0.27-4.20) 08/21/22 10:30 Free T4 1.06 ng/dL (0.82-1.77) 08/21/22 10:30 Free T3 1.2 PG/ML (2.0-4.4) L 08/21/22 10:30 Random Cortisol 210.80 ug/dL (2.47-19.5) H 08/21/22 10:30 Urine Color Straw (Yellow) 08/17/22 16:52 Urine Appearance Clear (CLEAR) 08/17/22 16:52 Urine pH 5 (5-7) 08/17/22 16:52 Ur Specific Nitro 1.025 (1.005-1.030) 08/17/22 16:52 Urine Protein Neg (Negative) 08/17/22 16:52 Urine Glucose (UA) Norm (Normal) 08/17/22 16:52 Urine Ketones Negative (Negative) 08/17/22 16:52 Urine Blood Trace (Negative) H 08/17/22 16:52 Urine Nitrate Negative (Negative) 08/17/22 16:52 Urine Bilirubin Neg (Negative) 08/17/22 16:52 Urine Urobilinogen Norm mg/dL (Negative) 08/17/22 16:52 Ur Leukocyte Esterase Negative (Negative) 08/17/22 16:52 Urine RBC None /hpf (0-2) 08/17/22 16:52 Urine WBC Rare /hpf (0-5) 08/17/22 16:52 Ur Squamous Epith Cells 0-4 /hpf (0-5) H 08/17/22 16:52 Amorphous Sediment Not Reportable 08/17/22 16:52 Urine Bacteria Trace /hpf (NONE) 08/17/22 16:52 Nasal Influ A H1 2008 PCR Not detected (NOT DETECT) 08/17/22 19:09 Adenovirus (PCR) Not detected (NOT DETECT) 08/17/22 19:09 C. pneumoniae DNA (PCR) Not detected (NOT DETECT) 08/17/22 19:09 Coronavirus 229E (PCR) Not detected (NOT DETECT) 08/17/22 19:09 Hepatitis A IgM Ab Non-reactive (Nonreactive) 08/20/22 17:43 Hep Bs Antigen Non-reactive (Nonreactive) 08/20/22 17:43 Hep B Core IgM Ab Non-reactive (Nonreactive) 08/20/22 17:43 Hepatitis C Antibody Non-reactive (Nonreactive) 08/20/22 17:43 HIV 1&2 Ab & HIV 1 Ag Non-reactive (Non-Reactiv) 08/20/22 17:43 HIV 1&2 Antibody Non-reactive (Non-Reactiv) 08/20/22 17:43 Human Metapneumovir PCR Not detected (NOT DETECT) 08/17/22 19:09 Influenza A (H1) PCR Not detected (NOT DETECT) 08/17/22 19:09 Influenza A (H3) PCR Not detected (NOT DETECT) 08/17/22 19:09 Influenza Type A (PCR) Not detected (NOT DETECT) 08/17/22 19:09 Influenza Type B (PCR) Not detected (NOT DETECT) 08/17/22 19:09 M. pneumoniae (PCR) Not detected (NOT DETECT) 08/17/22 19:09 Parainfluenza 1 (PCR) Not detected (NOT DETECT) 08/17/22 19:09 Parainfluenza 2 (PCR) Not detected (NOT DETECT) 08/17/22 19:09 Parainfluenza 3 (PCR) Not detected (NOT DETECT) 08/17/22 19:09 Parainfluenza 4 (PCR) Not detected (NOT DETECT) 08/17/22 19:09 RSV Type A (PCR) Not detected (NOT DETECT) 08/17/22 19:09 RSV Type B (PCR) Not detected (NOT DETECT) 08/17/22 19:09 Entero/Rhino (PCR) Not detected (NOT DETECT) 08/17/22 19:09 SARS-CoV-2 (PCR) Not detected (NOT DETECT) 08/17/22 19:09 Vitals Last Vital Signs Temp 95 F L 08/24/22 08:00 Pulse 18 L 08/24/22 08:00 Resp 18 08/24/22 08:00 BP 91/60 08/24/22 08:00 Pulse Ox 89 L 08/24/22 08:00 O2 Del Method Room Air 08/24/22 04:00 O2 Flow Rate 2 08/24/22 07:26 Discharge Plan Discharge Patient Disposition: Xfer SNF Condition: Stable Prescriptions: Discontinued One-A-Day Women's Complete(vK) 18 mg-400 mcg- 25 mcg tablet 1 tab PO DAILY coenzyme Q10 100 mg capsule 100 mg PO DAILY fluticasone propionate 50 mcg/actuation spray,suspension 1 spray intranasal BID Rx Instructions: administer into each nostril mirtazapine 15 mg tablet 15 mg PO .qhs Qty: 90 1RF gabapentin 100 mg capsule 100 mg PO .qhs Qty: 30 5RF valsartan 320 mg tablet 320 mg PO DAILY Qty: 90 1RF celecoxib 100 mg capsule 100 mg PO BID Qty: 60 2RF atorvastatin 40 mg tablet 40 mg PO .qhs 90 Days Qty: 90 1RF amlodipine 5 mg tablet 5 mg PO DAILY Qty: 90 1RF bisoprolol fumarate 5 mg tablet 5 mg PO DAILY Qty: 90 3RF hydrocodone-acetaminophen 5-325 mg tablet 1 tab PO BID PRN (Reason: chronic pain) 30 Days Qty: 60 0RF Rx Instructions: refill now and on or after her new 30 day interval. albuterol sulfate 90 mcg/actuation aerosol powdr breath activated 2 inh inhalation Q6H PRN (Reason: shortness of breath) Qty: 1 2RF Discharge Orders: Discharge Order (Routine); Ordered 08/24/22 Ordered By: Gurjit Alejandre Referrals: [facility] [Outside] [facility] ([facility]) [Outside] Steve Velez MD [Primary Care Provider] - Discharge Diet: As Directed Discharge Activity: Resume usual activity Patient Instructions: Hospice Care (GEN), Opioid Safety Discharge Attestations Time Spent in Discharge Care*: greater than 30 min Quality Metrics Clinical Quality Measures [ No reported AMI, CVA or VTE this stay] Coding Level of Care Code 42128 Total time (in minutes) for Discharge: 50 Diagnoses Hospice care Z51.5 Need for comfort care Respiratory failure with hypoxia J96.91 CVA, old, aphasia I69.320 Chronic nausea R11.0 Anxiety and depression F41.9; F32.A Hyperlipidemia E78.5 Hypertension I10 COPD (chronic obstructive pulmonary disease) J44.9 Intractable back pain M54.9 Protein calorie malnutrition E46 Physical deconditioning R53.81 Hypothyroidism E03.9 Aspiration pneumonitis J69.0 Aspiration pneumonia J69.0 Inability to walk R26.2 Falls W19.XXXA Acute encephalopathy G93.40 CVA (cerebral vascular accident) I63.9
[2022-08-24 11:47] LABS: SARS Covid-2 Antigen negative (Negative)
[2022-08-24 12:00] VITALS: BP 89/64; PULSE 96; RESP 16; O2SAT 93
--- NOTE | 2022-08-24 12:39 | PC.NURSE ---
Report called to Mariola at [facility]. PCS form filled out, and [facility] notified for ride.
[2022-08-24 13:35] VITALS: BP 89/64; PULSE 96; RESP 16; O2SAT 93
== END 2022-08-24 13:37 | disposition hospice, home (50) | DRG 551 ==
LOC: ER 21:10 → ICU 21:22 → MEDSURG 08-19 20:09
PROVIDERS: Family Medicine; Physician Assistant; Admitting Provider Internal Medicine; Emergency Provider Emergency Medicine; PCP Family Medicine Adult Medicine; Visit Provider Family Medicine
DX: M48.062 Spinal stenosis, lumbar region with neurogenic claudication (principal); J69.0 Pneumonitis due to inhalation of food and vomit; G93.40 Encephalopathy, unspecified; N39.0 Urinary tract infection, site not specified; E46 Unspecified protein-calorie malnutrition; R06.03 Acute respiratory distress; W19.XXXA Unspecified fall, initial encounter; F41.9 Anxiety disorder, unspecified; F32.A Depression, unspecified; J44.9 Chronic obstructive pulmonary disease, unspecified; I10 Essential (primary) hypertension; I69.920 Aphasia following unspecified cerebrovascular disease; E78.5 Hyperlipidemia, unspecified; G89.29 Other chronic pain; Z51.5 Encounter for palliative care; M15.9 Polyosteoarthritis, unspecified; M81.0 Age-related osteoporosis without current pathological fracture; F17.210 Nicotine dependence, cigarettes, uncomplicated; E03.9 Hypothyroidism, unspecified; R68.0 Hypothermia, not associated with low environmental temperature; R00.0 Tachycardia, unspecified; Z66 Do not resuscitate; Z68.21 Body mass index [BMI] 21.0-21.9, adult
CPT/HCPCS: 36415; 36416; 36600; 51702; 70450; 70491; 70551; 71045; 71110; 72072; 72148; 74176; 80048; 80051; 80053; 80074; 81001; 82140; 82330; 82533; 82550; 82607; 82803; 82805; 82962; 83605; 83690; 83735; 83880; 84100; 84145; 84439; 84443; 84481; 84484; 85025; 85378; 85651; 86140; 87040; 87426; 87486; 87581; 87633; 87641; 87806; 93005; 93306; 94762; 96365; 96372; 96375; 96376; 97530; 99285; J0456; J0696; J1100; J1170; J1644; J1720; J1885; J1953; J2060; J2270; J2405; J2543; J3490; J7030; J7050; Q9967